=== PATIENT | male | born 1970 | race Two or more races ===

== ENCOUNTER 2016-12-03 18:00 | Emergency (ER) | payer SELFPAY ==
[~2016-12-03] VITALS: Ht 175.3 cm; Wt 82.6 kg
[2016-12-03 18:09] VITALS: BP 126/74
[2016-12-03] MEDS ORDERED: Mylanta II UD 30ml ORAL ONE (18:15)
[2016-12-03] MEDS ORDERED: Lidocaine 2% Visc 15ml soln ORAL ONE (18:15)
[2016-12-03] MEDS ORDERED: Dicyclomine HCl 10mg/5ml oral soln ORAL ONE (18:15)
[2016-12-03] MEDS ORDERED: PEPCID20 MG ORAL (18:22)
--- NOTE | 2016-12-03 18:35 | Emergency Room Report ---
History of Present Illness General Chief Complaint: Chest Pain Source: Patient Present Illness HPI Patient present with complaints of pain to the left upper chest area Sharp shooting pain that came on while he was at work Denies any shortness of breath it lasted few seconds and relieves patient reports some increased nausea with that Denies any vomiting or lightheadedness Denies any back or flank pain Denies any recent fevers or chills denies any cough pain was 3/10 Without much other radiation Allergies: Coded Allergies: No Known Allergies (Unverified , 10/17/16) Patient History Past Medical History: see triage record Pertinent Family History: none Reviewed Nursing Documentation: PMH: Agreed, PSxH: Agreed Nursing Documentation-PMH Past Medical History: No Stated History Review of Systems All Other Systems: negative except mentioned in HPI Physical Exam Vital Signs Date Time Temp Pulse Resp B/P Pulse Ox O2 Delivery O2 Flow Rate FiO2 12/03/16 18:04 97.5 76 17 124/76 98 Room Air Sp02 EP Interpretation: reviewed, normal General Appearance: well appearing, no apparent distress Head: normocephalic, atraumatic Eyes: bilateral eye EOMI, bilateral eye PERRL ENT: hearing grossly normal, normal pharynx, TMs + canals normal, uvula midline Neck: full range of motion, supple, no meningismus, no bony tend Respiratory: lungs clear, normal breath sounds, no rhonchi, no respiratory distress, no retraction, no accessory muscle use Cardiovascular #1: normal peripheral pulses, regular rate, rhythm, no edema, no gallop, no JVD, no murmur Gastrointestinal: normal bowel sounds, non tender, soft, no mass, no organomegaly, non-distended, no guarding, no hernia, no pulsatile mass, no rebound Genitourinary: no CVA tenderness Musculoskeletal: normal inspection Neurologic: oriented x3, responsive, fluorescent solution mixer III-XII nml as tested, motor strength/ tone normal, sensory intact Psychiatric: mood/affect normal Skin: normal color, no rash, warm/dry, palpation normal Lymphatic: normal inspection, no adenopathy Medical Decision Making Diagnostic Impression: Primary Impression: Chest pain ER Course Patient was seen fairly recently here in the ER by myself At that time extensive workup including blood work was initiated Today the patient had EKG obtained Remains hemodynamically stable I did not feel that repeat blood work was appropriate at this time given his recent workup Patient was provided with a GI cocktail which did improve some symptoms The patient stable for close outpatient followup EKG Diagnostic Results Rate: normal Rhythm: NSR ST Segments: no acute changes Rhythm Strip Diag. Results EP Interpretation: yes Rate: 77 Rhythm: NSR, no PVC's, no ectopy Last Vital Signs Date Time Temp Pulse Resp B/P Pulse Ox O2 Delivery O2 Flow Rate FiO2 12/03/16 18:10 65 12 Room Air 12/03/16 18:09 97.5 126/74 98 Status: improved Disposition: HOME, SELF-CARE Condition: Improved Scripts Famotidine (PEPCID) 20 Mg Tablet 20 MG ORAL BEDTIME, #14 TAB 0 Refills Prov: LALITA DERAS D.O. 12/03/16 Referrals: NOT CHOSEN IPA/,REFERRING (PCP) Patient Instructions: Nonspecific Chest Pain Additional Instructions: Patient is provided with the discharge instructions notified to follow up with primary doctor in the next 2-3 days otherwise return to the er with any worsening symptoms. LALITA DERAS D.O. Dec 03, 2016 18:35
[2016-12-03 18:36] VITALS: BP 126/74
--- NOTE | 2016-12-06 15:53 | Cardiology Report ---
APPROVED REPORT EKG Measurement Heart [id number] Normal sinus rhythm Normal ECG
== END 2016-12-03 18:37 | disposition home or self-care (01) ==
LOC: EMR 18:05
DX: R07.9 Chest pain, unspecified (principal)
CPT/HCPCS: 93005; 99283

== ENCOUNTER 2017-06-29 16:40 | Emergency (ER) | payer MEDICAID, OTHER ==
[~2017-06-29] VITALS: Ht 172.7 cm; Wt 86.2 kg
[~2017-06-29 16:40] MED LIST: PEPCID20 MG ORAL
[2017-06-29] MEDS ORDERED: LOSARTAN POTASS25 MG ORAL (16:55)
[2017-06-29 17:11] VITALS: BP 148/95
[2017-06-29] MEDS ORDERED: Tetracaine 0.5% Opth Soln LEFT EYE ONE (17:15)
[2017-06-29] MEDS ORDERED: DiphenhydrAMINE 50mg/ml Inj IVP ONE (17:15)
[2017-06-29] MEDS ORDERED: Ketorolac 30mg Inj IV ONE ×2 (17:15→18:15)
[2017-06-29] MEDS ORDERED: Tetracaine 0.5% Opth Soln RIGHT EYE ONE (17:15)
[2017-06-29 18:08] LABS: BASOPHILS % (AUTO) 1.1 % (0.0-2.0); LYMPHOCYTES % (AUTO) 21.1 % (20.0-45.0); MEAN CORPUSCULAR HEMOGLOBIN 31.1 PG (27.0-31.0); MEAN CORPUSCULAR HGB CONC 35.7 G/DL (32.0-36.0); MEAN CORPUSCULAR VOLUME 87 FL (80-99); MEAN PLATELET VOLUME 7.4 FL (6.5-10.1); MONOCYTES % (AUTO) 9.1 % (1.0-10.0); NEUTROPHILS % (AUTO) 66.7 % (45.0-75.0); PLATELET COUNT 199 K/UL (150-450); RED CELL DISTRIBUTION WIDTH 11.8 % (11.6-14.8); WHITE BLOOD COUNT 7.4 K/UL (4.8-10.8)
[2017-06-29 18:15] LABS: INR 0.9 (0.9-1.1); PROTHROMBIN TIME 9.9 SEC (9.30-11.50)
[2017-06-29 18:25] LABS: ALANINE AMINOTRANSFERASE 26 U/L (3-41); ALBUMIN/GLOBULIN RATIO 1.8 (1.0-2.7); ANION GAP 14 (5-15); ASPARTATE AMINO TRANSFERASE 20 U/L (5-40); CALCIUM 9.1 mg/dL (8.6-10.2); CARBON DIOXIDE 23 mEQ/L (20-30); CHLORIDE 102 mEQ/L (98-107); CREATININE 0.8 mg/dL (0.7-1.2); GLOMERULAR FILTRATION RATE > 60 mL/min (>60); HEMOLYSIS 19; POTASSIUM 3.8 mEQ/L (3.4-4.9); SODIUM 139 mEQ/L (135-145); TOTAL PROTEIN 7.1 g/dL (6.6-8.7)
[2017-06-29] MEDS ORDERED: IBUPROFEN600 MG ORAL (18:37)
[2017-06-29] MEDS ORDERED: REGLAN10 MG ORAL (18:37)
[2017-06-29 18:43] VITALS: BP_SYST 125; BP_SYST 148; BP_DIAS 78; BP_DIAS 95
--- NOTE | 2017-06-30 09:36 | Diagnostic Imaging Report ---
Indication: Headache Technique: Contiguous 5 mm thick transaxial imaging of the head obtained in a Siemens Sensation [address] scanner. Soft tissue and bone windows generated. Total Dose length Product (DLP): [address] Dose Index Volume (CTDIvol): 70.38 mGy Comparison: none Findings: The size and configuration of the cortical sulci, basal cisterns, and ventricles are within normal limits for age. There is no mass effect, midline shift, or edema identified. There is no evidence of acute hemorrhage or abnormal intra-axial or extra-axial fluid collections. There is right mastoid opacification. No associated fracture identified. The findings are presumably inflammatory in nature. Please correlate clinically. Impression: No mass effect, edema or acute bleed. Partial right mastoid air cell opacification --mastoiditis versus trauma. No acute fracture identified. Please correlate clinically. The CT scanner at [facility] is accredited by the [employer] and the scans are performed using dose optimization techniques as appropriate to a performed exam including Automatic Exposure control.
--- NOTE | 2017-06-30 12:38 | Emergency Room Report ---
History of Present Illness General Chief Complaint: Headache Source: Patient Present Illness HPI The patient is a 47 old male with a history of hypertension presenting for headache, eye pain, and blurred vision. He states that he awoke with the symptoms today. The blurred vision has resolved but headache is a 7/10 dull ache primarily to the back of the head. Radiates to the neck. No known provoking relieving factors. He denies history of migraines. He denies other symptoms including fever, chills, dizziness, chest pain, shortness of breath Allergies: Coded Allergies: No Known Allergies (Unverified , 10/17/16) Patient History Past Medical History: see triage record Pertinent Family History: none Reviewed Nursing Documentation: PMH: Agreed, PSxH: Agreed Nursing Documentation-PMH Past Medical History: No History, Except For Hx Hypertension: Yes Review of Systems All Other Systems: negative except mentioned in HPI Physical Exam Vital Signs Date Time Temp Pulse Resp B/P Pulse Ox O2 Delivery O2 Flow Rate FiO2 06/29/17 16:52 97.9 74 16 143/100 98 Room Air Sp02 EP Interpretation: reviewed, normal General Appearance: no apparent distress, alert, GCS 15, non-toxic Head: normocephalic, atraumatic Eyes: bilateral eye EOMI, bilateral eye PERRL, bilateral eye normal inspection ENT: hearing grossly normal, normal pharynx, no angioedema, normal voice Neck: full range of motion, no bony tend, supple/symm/no masses, tender lateral - bilat paraspinal tenderness to proximal neck. Full AROM. Soft and supple Respiratory: chest non-tender, lungs clear, normal breath sounds, speaking full sentences Cardiovascular #1: regular rate, rhythm, no edema Neurologic: alert, oriented x3, responsive, motor strength/tone normal, sensory intact, normal gait, speech normal Psychiatric: judgement/insight normal, memory normal, mood/affect normal, no suicidal/homicidal ideation Skin: normal color, no rash, warm/dry, well hydrated Medical Decision Making PA Attestation Dr. Henson is my supervising physician. Patient management was discussed with my supervising physician Diagnostic Impression: Primary Impression: Migraine Qualified Codes: G43.909 - Migraine, unspecified, not intractable, without status migrainosus ER Course The patient is a 47 old male presenting for headache, eye pain, and blurred vision DDx considered but not limited to: migraine BLACK, cluster BLACK, glaucoma, among others PE: Mild HTN. NAD Head is NC/AT PERRL. EOMI. No injection. No corneal haze. There is tenderness to palpation over the proximal cervical paraspinal muscles. Full active range of motion. Soft and supple Vision is 20/20. See nurses note. IOP is 19 OD and 20 OS Blood work unremarkable. CT head unremarkable The patient is given toradol, benadryl, and reglan and states he is feeling much better. All symptoms have improved. ER precautions are given and he would followup with primary doctor Laboratory Tests Test 06/29/17 17:55 White Blood Count 7.4 K/UL (4.8-10.8) Red Blood Count 5.20 M/UL (4.70-6.10) Hemoglobin 16.2 G/DL (14.2-18.0) Hematocrit 45.2 % (42.0-52.0) Mean Corpuscular Volume 87 FL (80-99) Mean Corpuscular Hemoglobin 31.1 PG (27.0-31.0) H Mean Corpuscular Hemoglobin Concent 35.7 G/DL (32.0-36.0) Red Cell Distribution Width 11.8 % (11.6-14.8) Platelet Count 199 K/UL (150-450) Mean Platelet Volume 7.4 FL (6.5-10.1) Neutrophils (%) (Auto) 66.7 % (45.0-75.0) Lymphocytes (%) (Auto) 21.1 % (20.0-45.0) Monocytes (%) (Auto) 9.1 % (1.0-10.0) Eosinophils (%) (Auto) 2.0 % (0.0-3.0) Basophils (%) (Auto) 1.1 % (0.0-2.0) Prothrombin Time 9.9 SEC (9.30-11.50) Prothrombin Time INR 0.9 (0.9-1.1) PTT 27 SEC (23-33) Sodium Level 139 mEQ/L (135-145) Potassium Level 3.8 mEQ/L (3.4-4.9) Chloride Level 102 mEQ/L (98-107) Carbon Dioxide Level 23 mEQ/L (20-30) Anion Gap 14 (5-15) Blood Urea Nitrogen 10 mg/dL (7-23) Creatinine 0.8 mg/dL (0.7-1.2) Estimate Glomerular Filtration Rate > 60 mL/min (>60) Glucose Level 101 mg/dL (74-106) Calcium Level 9.1 mg/dL (8.6-10.2) Total Bilirubin 0.9 mg/dL (0.0-1.2) Aspartate Amino Transferase (AST) 20 U/L (5-40) Alanine Aminotransferase (ALT) 26 U/L (3-41) Alkaline Phosphatase 75 U/L (40-129) Total Protein 7.1 g/dL (6.6-8.7) Albumin 4.6 g/dL (3.5-5.2) Globulin 2.5 g/dL Albumin/Globulin Ratio 1.8 (1.0-2.7) Lab Results Impression unremarkable CT/MRI/US Diagnostic Results CT/MRI/US Diagnostic Results : Imaging Test Ordered: CT head Impression unremarkable Last Vital Signs Date Time Temp Pulse Resp B/P Pulse Ox O2 Delivery O2 Flow Rate FiO2 06/29/17 18:43 97.9 66 19 125/78 100 Room Air Status: improved Disposition: HOME, SELF-CARE Condition: Improved Scripts Metoclopramide Hcl* (REGLAN*) 10 Mg Tablet 10 MG ORAL THREE TIMES A DAY, #15 TAB Prov: JOYCELYN RODAS 06/29/17 Ibuprofen* (MOTRIN*) 600 Mg Tablet 600 MG ORAL Q8H Y for For Pain, #30 TAB 0 Refills Prov: JOYCELYN RODAS 06/29/17 Patient Instructions: Migraine Headache Additional Instructions: I discussed my findings with the patient. All questions and concerns have been answered. Treatment and medication compliance have been addressed. I advised the patient that they need to follow up with PMD in 3-5 days. Return to ED if symptoms worsen, new symptoms arise, or if needed for any reason. Patient verbalized understanding of discharge instructions. JOYCELYN RODAS Jun 30, 2017 12:38
== END 2017-06-29 18:43 | disposition home or self-care (01) ==
LOC: EMR 18:10
DX: G43.909 Migraine, unspecified, not intractable, without status migrainosus (principal); I10 Essential (primary) hypertension
CPT/HCPCS: 36415; 70450; 80053; 85025; 85610; 85730; 96374; 96375; 99284; J1200; J1885; J2405

== ENCOUNTER 2017-09-08 14:22 | Emergency (ER) | payer OTHER ==
[~2017-09-08] VITALS: Ht 165.1 cm; Wt 86.2 kg
[~2017-09-08 14:22] MED LIST changes: +IBUPROFEN600 MG ORAL; +LOSARTAN POTASS25 MG ORAL; +REGLAN10 MG ORAL
[2017-09-08 14:36] VITALS: BP 142/80
[2017-09-08 15:19] LABS: BASOPHILS % (AUTO) 0.6 % (0.0-2.0); EOSINOPHILS % (AUTO) 0.6 % (0.0-3.0); LYMPHOCYTES % (AUTO) 13.1 % (20.0-45.0); MEAN CORPUSCULAR HEMOGLOBIN 30.1 PG (27.0-31.0); MEAN CORPUSCULAR HGB CONC 34.3 G/DL (32.0-36.0); MEAN CORPUSCULAR VOLUME 88 FL (80-99); MEAN PLATELET VOLUME 7.8 FL (6.5-10.1); MONOCYTES % (AUTO) 7.9 % (1.0-10.0); NEUTROPHILS % (AUTO) 77.7 % (45.0-75.0); PLATELET COUNT 213 K/UL (150-450); RED BLOOD COUNT 5.28 M/UL (4.70-6.10); RED CELL DISTRIBUTION WIDTH 11.6 % (11.6-14.8); WHITE BLOOD COUNT 6.8 K/UL (4.8-10.8)
[2017-09-08 15:53] LABS: ALANINE AMINOTRANSFERASE 27 U/L (12-78); ALBUMIN/GLOBULIN RATIO 1.2 (1.0-2.7); ANION GAP 12 mmol/L (5-15); ASPARTATE AMINO TRANSFERASE 22 U/L (15-37); CALCIUM 9.3 MG/DL (8.5-10.1); CARBON DIOXIDE 23 MMOL/L (21-32); CHLORIDE 108 MMOL/L (98-107); CREATININE 0.9 MG/DL (0.55-1.30); GLOMERULAR FILTRATION RATE > 60 mL/min (>60); POTASSIUM 3.8 MMOL/L (3.5-5.1); SODIUM 143 MMOL/L (136-145); TOTAL PROTEIN 7.4 G/DL (6.4-8.2)
[2017-09-08] MEDS ORDERED: IBUPROFEN600 MG ORAL (16:08)
[2017-09-08 16:15] VITALS: BP 139/85
--- NOTE | 2017-09-08 16:34 | Emergency Room Report ---
History of Present Illness General Chief Complaint: Chest Pain Source: Patient Present Illness HPI 47-year-old male presents to ED complaining of chest pain. States the pain started this morning, left-sided, sharp, 8/10, radiating through the shoulder. Patient states pain is worse with deep breaths and moving. Denies cough. Denies fevers or chills. Denies shortness of breath. No other aggravating relieving factors. Denies any other associated symptoms Allergies: Coded Allergies: No Known Allergies (Unverified , 10/17/16) Patient History Past Medical History: HTN Past Surgical History: none Pertinent Family History: none Social History: Denies: smoking, alcohol use, drug use Immunizations: UTD Reviewed Nursing Documentation: PMH: Agreed, PSxH: Agreed Nursing Documentation-PMH Hx Hypertension: Yes Review of Systems All Other Systems: negative except mentioned in HPI Physical Exam Vital Signs Date Time Temp Pulse Resp B/P (MAP) Pulse Ox O2 Delivery O2 Flow Rate FiO2 09/08/17 14:26 97.9 78 18 148/82 95 Room Air Sp02 EP Interpretation: reviewed, normal General Appearance: no apparent distress, alert, GCS 15, non-toxic Head: normocephalic, atraumatic Eyes: bilateral eye normal inspection, bilateral eye PERRL ENT: hearing grossly normal, normal pharynx, no angioedema, normal voice Neck: full range of motion, supple/symm/no masses Respiratory: chest non-tender, lungs clear, normal breath sounds, speaking full sentences Cardiovascular #1: regular rate, rhythm, no edema Cardiovascular #2: 2+ carotid (R), 2+ carotid (L), 2+ radial (R), 2+ radial (L) , 2+ dorsalis pedis (R), 2+ dorsalis pedis (L) Gastrointestinal: normal bowel sounds, non tender, soft, non-distended, no guarding, no rebound Rectal: deferred Genitourinary: normal inspection, no CVA tenderness Musculoskeletal: back normal, gait/station normal, normal range of motion, non- tender Neurologic: alert, oriented x3, responsive, motor strength/tone normal, sensory intact, speech normal Psychiatric: judgement/insight normal, memory normal, mood/affect normal, no suicidal/homicidal ideation Reflexes: 3+ bicep (R), 3+ bicep (L), 3+ tricep (R), 3+ tricep (L), 3+ knee (R) , 3+ knee (L) Skin: normal color, no rash, warm/dry, well hydrated Lymphatic: no adenopathy Medical Decision Making Diagnostic Impression: Primary Impression: Chest pain Qualified Codes: R07.9 - Chest pain, unspecified ER Course Hospital Course 47-year-old M presents ED complaining of chest pain Differential diagnoses include: Rib fracture, MO/unstable angina, contusion, muscle strain Clinical course Patient placed on stretcher. After initial history and physical I ordered labs , EKG, chest x-ray. labs reviewed- all electrolytes normal, troponins negative, no leukocytosis, hemoglobin/hematocrit stable Chest x-ray-no cardiomegaly, no rib fracture, no pneumothorax, no acute process per HEART score, patient is at low risk for acute event given lack of risk factors. Patient can be safely discharged to home pending outpatient followup. based on presentation, I believe the pain is muscular. patient agrees with plan I. I feel this is a highly complex case requiring extensive working including EKG/Rhythm strip, Xray/CT/US, Blood/urine lab work, repeat exams while in ED, and administration of strong opiates/narcotics for pain control, admission to hospital or close patient follow up. Diagnosis - chest pain Stable and discharged to home with Rx Motrin. Instructed to followup with PMD. Return to ED if symptoms recur or worsen Labs Test 09/08/17 15:05 White Blood Count 6.8 K/UL (4.8-10.8) Red Blood Count 5.28 M/UL (4.70-6.10) Hemoglobin 15.9 G/DL (14.2-18.0) Hematocrit 46.3 % (42.0-52.0) Mean Corpuscular Volume 88 FL (80-99) Mean Corpuscular Hemoglobin 30.1 PG (27.0-31.0) Mean Corpuscular Hemoglobin Concent 34.3 G/DL (32.0-36.0) Red Cell Distribution Width 11.6 % (11.6-14.8) Platelet Count 213 K/UL (150-450) Mean Platelet Volume 7.8 FL (6.5-10.1) Neutrophils (%) (Auto) 77.7 % (45.0-75.0) Lymphocytes (%) (Auto) 13.1 % (20.0-45.0) Monocytes (%) (Auto) 7.9 % (1.0-10.0) Eosinophils (%) (Auto) 0.6 % (0.0-3.0) Basophils (%) (Auto) 0.6 % (0.0-2.0) Sodium Level 143 MMOL/L (136-145) Potassium Level 3.8 MMOL/L (3.5-5.1) Chloride Level 108 MMOL/L (98-107) Carbon Dioxide Level 23 MMOL/L (21-32) Anion Gap 12 mmol/L (5-15) Blood Urea Nitrogen 12 mg/dL (7-18) Creatinine 0.9 MG/DL (0.55-1.30) Estimat Glomerular Filtration Rate > 60 mL/min (>60) Glucose Level 100 MG/DL (74-106) Calcium Level 9.3 MG/DL (8.5-10.1) Total Bilirubin 0.7 MG/DL (0.2-1.0) Aspartate Amino Transf (AST/SGOT) 22 U/L (15-37) Alanine Aminotransferase (ALT/SGPT) 27 U/L (12-78) Alkaline Phosphatase 78 U/L (46-116) Total Creatine Kinase 175 U/L (26-308) Creatine Kinase MB 2.0 NG/ML (0.0-3.6) Creatine Kinase MB Relative Index 1.1 Troponin I 0.000 ng/mL (0.000-0.056) Pro-B-Type Natriuretic Peptide 11 pg/mL (0-125) Total Protein 7.4 G/DL (6.4-8.2) Albumin 4.1 G/DL (3.4-5.0) Globulin 3.3 g/dL Albumin/Globulin Ratio 1.2 (1.0-2.7) EKG Diagnostic Results Rate: normal Rhythm: NSR ST Segments: no acute changes ASA given to the pt in ED: No Rhythm Strip Diag. Results EP Interpretation: yes Rhythm: NSR, no PVC's, no ectopy Chest X-Ray Diagnostic Results Chest X-Ray Diagnostic Results : Chest X-Ray Ordered: Yes # of Views/Limited/Complete: 1 View Indication: Chest Pain EP Interpretation: Yes Interpretation: no consolidation, no effusion, no pneumothorax, no acute cardiopulmonary disease Impression: No acute disease Electronically Signed by: Electronically signed by Sander Henson MD Last Vital Signs Date Time Temp Pulse Resp B/P (MAP) Pulse Ox O2 Delivery O2 Flow Rate FiO2 09/08/17 16:15 97.9 77 17 139/85 94 Room Air Status: improved Disposition: HOME, SELF-CARE Condition: Stable Scripts Ibuprofen* (MOTRIN*) 600 Mg Tablet 600 MG ORAL Q8H Y for For Pain, #30 TAB 0 Refills Prov: SANDER HENSON M.D. 09/08/17 Departure Forms: Return to Work Return to Work Date: Sep 09, 2017 Work Restrictions: No Heavy Lifting Patient Instructions: Nonspecific Chest Pain SANDER HENSON M.D. Sep 08, 2017 16:34
--- NOTE | 2017-09-08 18:03 | Diagnostic Imaging Report ---
Indication: Chest pain Technique: One view of the chest Comparison: 10/17/2016 Findings: Lungs and pleural spaces are clear. Heart size is normal. No significant interim change Impression: No acute process
--- NOTE | 2017-09-10 17:34 | Cardiology Report ---
APPROVED REPORT EKG Measurement Heart [id number] Normal sinus rhythm Normal ECG
== END 2017-09-08 16:15 | disposition home or self-care (01) ==
LOC: EMR 15:10
DX: R07.9 Chest pain, unspecified (principal); I10 Essential (primary) hypertension
CPT/HCPCS: 36415; 71010; 80053; 82550; 82553; 83880; 84484; 85025; 93005; 96361; 96374; 99284

== ENCOUNTER 2018-02-02 10:51 | Emergency (ER) | payer MEDICAID, OTHER ==
[~2018-02-02] VITALS: Ht 172.7 cm; Wt 89.8 kg
[2018-02-02] MEDS ORDERED: Metoclopramide 10mg/10ml Liq ORAL ONE (11:15)
[2018-02-02] MEDS ORDERED: Ketorolac 60mg Inj IM ONE (11:15)
--- NOTE | 2018-02-02 11:33 | Emergency Room Report ---
History of Present Illness General Chief Complaint: Pain Source: Patient Present Illness HPI 47-year-old male presents with headache this morning, bitemporal, feels like usual migraine. Did not take any pain medication at home. Has neurology appointment coming up. denies neck pain, stiffness, nausea or vomiting or fevers chills. Patient also states he noted some bleeding to top of right scrotum after shower but he doesn't remember scratching area, do not shave area and denies any trauma to area. He states with pressure bleeding stopped. Allergies: Coded Allergies: No Known Allergies (Unverified , 10/17/16) Patient History Past Medical History: migraines Past Surgical History: none Pertinent Family History: none Immunizations: UTD Reviewed Nursing Documentation: PMH: Agreed, PSxH: Agreed Nursing Documentation-PMH Past Medical History: No History, Except For Hx Hypertension: Yes Review of Systems All Other Systems: negative except mentioned in HPI Physical Exam Vital Signs Date Time Temp Pulse Resp B/P (MAP) Pulse Ox O2 Delivery O2 Flow Rate FiO2 02/02/18 10:55 97.6 71 18 138/85 96 Room Air 97.5 Sp02 EP Interpretation: reviewed, normal General Appearance: normal inspection, well appearing, no apparent distress, alert, GCS 15, non-toxic Head: normocephalic, atraumatic Eyes: bilateral eye PERRL, bilateral eye EOMI ENT: normal ENT inspection, hearing grossly normal, normal pharynx, no angioedema, normal voice, TMs + canals normal, uvula midline, moist mucus membranes Neck: normal inspection, full range of motion, supple, thyroid normal, no meningismus, no bony tend Respiratory: normal inspection, lungs clear, normal breath sounds, no rhonchi, no respiratory distress, no retraction, no accessory muscle use, no wheezing, speaking full sentences Cardiovascular #1: regular rate, rhythm, no edema, no JVD, normal capillary refill Gastrointestinal: normal inspection, normal bowel sounds, non tender, soft, no mass, no peritonitis, non-distended, no guarding, no hernia, no pulsatile mass Genitourinary: no CVA tenderness, other - Top right of scrotum: dried blood noted. Area wiped with alcohol and small ooze/bleeding observed. Stopped with pressure. Musculoskeletal: normal inspection, back normal, normal range of motion, no calf tenderness, pelvis stable, Santo's Sign negative Neurologic: normal inspection, alert, oriented x3, responsive, thread spooler III-XII nml as tested, motor strength/tone normal, cerebellar normal, normal gait, speech normal Psychiatric: normal inspection, judgement/insight normal, mood/affect normal, no suicidal/homicidal ideation, no delusions Skin: normal inspection, normal color, no rash Lymphatic: normal inspection, no adenopathy Medical Decision Making Diagnostic Impression: Primary Impression: Headache Qualified Codes: G44.209 - Tension-type headache, unspecified, not intractable Additional Impression: Scrotal bleeding ER Course Patient was headache for 1 day likely usual migraine. No focal neurological deficits. Low suspicion for SAH or meningitis given well appearance, no focal neurological deficits, no meningismus, and known migraine history.. In symptoms improved with IM Toradol and by mouth Reglan. Patient kash has follow-up with neurology scheduled. Will prescribe medication he can take at home for migraine flare. Bleeding to top of scrotums stopped with pressure no associated infection, mass to area ER course: Patient has remained stable during ED stay. Disposition: Patient is to be discharged to home. Prescriptions given are reglan/tylenol Patient is instructed to follow up with their primary care doctor within 5 days. Patient is instructed to follow up with neurologist at scheduled appointment Strict return precautions discussed with patient such as fever, chills, worsening/severe pain, nausea, vomiting, which may indicate severe illness. Patient verbalizes understanding and agrees with plan. Please note that this Emergency Department Report was dictated using [employer] worker technology software, occasionally this can lead to erroneous entry secondary to interpretation by the dictation equipment Last Vital Signs Date Time Temp Pulse Resp B/P (MAP) Pulse Ox O2 Delivery O2 Flow Rate FiO2 02/02/18 10:55 97.6 71 18 138/85 96 Room Air 97.5 Status: improved Disposition: HOME, SELF-CARE Referrals: NOT CHOSEN IPA/,REFERRING (PCP) ZAHRAA STEVENSON M.D. Feb 02, 2018 11:33
[2018-02-02] MEDS ORDERED: TYLENOL325 MG ORAL (11:34)
[2018-02-02] MEDS ORDERED: REGLAN10 M1 ORAL (11:34)
[2018-02-02 11:57] VITALS: BP 123/85
[2018-02-02 12:00] VITALS: BP 123/85
== END 2018-02-02 12:02 | disposition home or self-care (01) ==
LOC: EMR 11:07
DX: R51 Headache (principal); N50.89 Other specified disorders of the male genital organs; I10 Essential (primary) hypertension
CPT/HCPCS: 96372; 99283

== ENCOUNTER 2018-02-26 23:19 | Emergency (ER) | payer MEDICAID ==
[~2018-02-26] VITALS: Ht 172.7 cm; Wt 90.7 kg
[~2018-02-26 23:19] MED LIST changes: +REGLAN10 M1 ORAL; +TYLENOL325 MG ORAL
[2018-02-27 00:06] VITALS: BP 124/80
--- NOTE | 2018-02-27 00:13 | Emergency Room Report ---
History of Present Illness General Chief Complaint: Palpitations Source: Patient Present Illness [facility] This is a 48-year-old male with no past medical history. He presents with chief complaint of palpitation. Afterward he was sitting at home when he felt his heart beating really fast. He said he was pounding any felt dizzy. No syncope. This lasted about 5 minutes. Now symptom resolved. Denies any chest pain. Does have some headache. No nausea no vomiting. No fever or chills. No recent alcohol or drug use. Allergies: Coded Allergies: No Known Allergies (Unverified , 10/17/16) Patient History Past Medical History: see triage record, old chart reviewed Past Surgical History: none Pertinent Family History: none Social History: Denies: smoking Immunizations: other Reviewed Nursing Documentation: PMH: Agreed; PSxH: Agreed Nursing Documentation-PMH Past Medical History: No History, Except For Hx Hypertension: Yes Review of Systems Eye: Denies: eye pain, blurred vision ENT: Denies: ear pain, nose congestion, throat swelling Respiratory: Denies: cough, shortness of breath Cardiovascular: Reports: palpitations; Denies: chest pain Gastrointestinal: Denies: abdominal pain, diarrhea, nausea, vomiting Musculoskeletal: Denies: back pain, joint pain Skin: Denies: rash Neurological: Denies: headache, numbness Endocrine: Denies: increased thirst, increased urine Hematologic/Lymphatic: Denies: easy bruising All Other Systems: negative except mentioned in HPI Physical Exam Vital Signs Date Time Temp Pulse Resp B/P (MAP) Pulse Ox O2 Delivery O2 Flow Rate FiO2 02/26/18 23:36 98.2 67 18 129/83 97 Room Air 98.2 vitals normal Sp02 EP Interpretation: reviewed, normal General Appearance: well appearing, no apparent distress, alert Head: normocephalic, atraumatic Eyes: bilateral eye PERRL, bilateral eye EOMI ENT: hearing grossly normal, normal pharynx Neck: full range of motion, supple, no meningismus Respiratory: chest non-tender, lungs clear, normal breath sounds Cardiovascular #1: regular rate, rhythm, no murmur Gastrointestinal: normal bowel sounds, non tender, no mass, no organomegaly, no bruit, non-distended Musculoskeletal: back normal, gait/station normal, normal range of motion Psychiatric: mood/affect normal Skin: warm/dry Medical Decision Making Diagnostic Impression: Primary Impression: Palpitations ER Course Patient with palpitation. This may be an SVT or PVCs. Or other arrhythmia. He is asymptomatic right now. We'll discharge home. He will benefit from a Holter monitor. EKG Diagnostic Results Rate: normal Rhythm: NSR ST Segments: no acute changes Rhythm Strip Diag. Results Rhythm Strip Time: 00:12 EP Interpretation: yes Rate: 72 Rhythm: NSR, no PVC's, no ectopy Last Vital Signs Date Time Temp Pulse Resp B/P (MAP) Pulse Ox O2 Delivery O2 Flow Rate FiO2 02/27/18 00:06 98.2 20 124/80 97 Room Air 98.2 02/26/18 23:36 67 Status: improved Disposition: HOME, SELF-CARE Condition: Stable Referrals: NON PHYSICIAN (PCP) Patient Instructions: Palpitations Additional Instructions: Follow-up with your doctor within a week. Avoid alcohol or caffeine. You will need a referral to see a creative services specialist for Holter monitor. Return if worse. CARINA GALICIA M.D. Feb 27, 2018 00:13
[2018-02-27 00:17] VITALS: BP 118/76
== END 2018-02-27 00:17 | disposition home or self-care (01) ==
LOC: EMR 23:45
DX: R00.2 Palpitations (principal); I10 Essential (primary) hypertension
CPT/HCPCS: 99283

== ENCOUNTER 2018-07-22 18:05 | Emergency (ER) | payer MEDICAID ==
[~2018-07-22] VITALS: Ht 165.1 cm; Wt 89.8 kg
[2018-07-22 18:14] VITALS: BP 130/72
[2018-07-22] MEDS ORDERED: NAPROXEN500 M2 ORAL (18:51)
[2018-07-22 18:58] VITALS: BP 130/72
--- NOTE | 2018-07-22 19:31 | Emergency Room Report ---
History of Present Illness General Chief Complaint: Pain Source: Patient Present Illness HPI Patient is a 48-year-old male presenting for right toe pain. This began 3 days prior and has been worsening. He admits to a history of gout and states he has been eating beef very often over the past month. Pain is a 10 out of 10 dull ache and does not radiate from the right big toe. It is worse with touch. He denies any known injury to the area. He took motrin which did help. He denies any other symptoms including fever, calf pain, numbness Allergies: Coded Allergies: No Known Allergies (Unverified , 10/17/16) Patient History Past Medical History: see triage record Pertinent Family History: none Reviewed Nursing Documentation: PMH: Agreed; PSxH: Agreed Nursing Documentation-PMH Past Medical History: No History, Except For Hx Hypertension: Yes Review of Systems All Other Systems: negative except mentioned in HPI Physical Exam Vital Signs Date Time Temp Pulse Resp B/P (MAP) Pulse Ox O2 Delivery O2 Flow Rate FiO2 07/22/18 18:09 97.6 78 18 130/72 96 Room Air 97.5 Sp02 EP Interpretation: reviewed, normal General Appearance: no apparent distress, alert, GCS 15, non-toxic Head: normocephalic, atraumatic Eyes: bilateral eye normal inspection, bilateral eye PERRL Musculoskeletal: back normal, gait/station normal, normal range of motion, tender - R 1st toe tender to light touch. Erythema. Swollen Neurologic: alert, oriented x3, responsive, motor strength/tone normal, sensory intact, speech normal Psychiatric: judgement/insight normal, memory normal, mood/affect normal, no suicidal/homicidal ideation Skin: warm/dry, well hydrated Medical Decision Making PA Attestation Dr. Henson is my supervising physician. Patient management was discussed with my supervising physician Diagnostic Impression: Primary Impression: Gout Qualified Codes: M10.9 - Gout, unspecified ER Course Patient is a 48-year-old male presenting for right toe pain Differential diagnoses considered but not limited to: Gout, fracture,sprain, cellulitis PE: Afebrile. NAD R 1st toe has erythema, edema, tender with soft touch. Limited AROM. Pt is given 0.6 of colchicine and will be DC'ed home with naproxen. He is given information regarding diet for gout. ER precautions given Last Vital Signs Date Time Temp Pulse Resp B/P (MAP) Pulse Ox O2 Delivery O2 Flow Rate FiO2 07/22/18 18:58 97.5 77 18 130/72 96 Room Air 97.5 Status: improved Disposition: HOME, SELF-CARE Condition: Improved Scripts Naproxen* (NAPROXEN*) 500 Mg Tablet 500 MG ORAL TWICE A WEEK, #60 TAB 0 Refills Prov: JOYCELYN RODAS 07/22/18 Patient Instructions: Low-Purine Diet, Gout Additional Instructions: I discussed my findings with the patient. All questions and concerns have been answered. Treatment and medication compliance have been addressed. I advised the patient that they need to follow up with PMD in 3-5 days. Return to ED if symptoms worsen, new symptoms arise, or if needed for any reason. Patient verbalized understanding of discharge instructions. JOYCELYN RODAS Jul 22, 2018 19:31
== END 2018-07-22 19:00 | disposition home or self-care (01) ==
LOC: EMR 18:39
DX: M10.9 Gout, unspecified (principal)
CPT/HCPCS: 99283

== ENCOUNTER 2018-08-16 04:16 | Emergency (ER) | payer MEDICAID ==
[~2018-08-16] VITALS: Ht 172.7 cm; Wt 89.8 kg
[~2018-08-16 04:16] MED LIST changes: +NAPROXEN500 M2 ORAL
[2018-08-16 04:31] VITALS: BP 141/82
[2018-08-16] MEDS ORDERED: ALLOPURINOL100 M1 ORAL (04:33)
--- NOTE | 2018-08-16 04:36 | Emergency Room Report ---
History of Present Illness General Chief Complaint: Abdominal Pain Source: Patient Present Illness HPI Patient presents report of initially chest pain On discussion he also complains of his right ear pain Patient reports pain to the left chest area midclavicular on the left side, fairly specific location patient palpates just above the areola area Reports of the pain had come on yesterday It is not currently present Denies any change with position or exertion Patient also complains of pain to the right ear Reports that he has a tube in the right ear and has noticed some discharge as well Denies any shortness of breath denies any pleurisy Allergies: Coded Allergies: No Known Allergies (Unverified , 10/17/16) Patient History Past Medical History: see triage record Pertinent Family History: none Reviewed Nursing Documentation: PMH: Agreed; PSxH: Agreed Nursing Documentation-PMH Hx Hypertension: Yes Review of Systems All Other Systems: negative except mentioned in HPI Physical Exam Vital Signs Date Time Temp Pulse Resp B/P (MAP) Pulse Ox O2 Delivery O2 Flow Rate FiO2 08/16/18 04:27 97.9 63 16 141/82 100 Room Air 97.9 Sp02 EP Interpretation: reviewed, normal General Appearance: well appearing, no apparent distress Head: normocephalic, atraumatic Eyes: bilateral eye PERRL, bilateral eye EOMI ENT: hearing grossly normal, normal pharynx, TMs + canals normal, uvula midline Neck: full range of motion, supple, no meningismus, no bony tend Respiratory: lungs clear, normal breath sounds, no rhonchi, no respiratory distress, no retraction, no accessory muscle use Cardiovascular #1: normal peripheral pulses, regular rate, rhythm, no edema, no gallop, no JVD, no murmur Gastrointestinal: normal bowel sounds, non tender, soft, no mass, no organomegaly, non-distended, no guarding, no hernia, no pulsatile mass, no rebound Genitourinary: no CVA tenderness Musculoskeletal: normal inspection Neurologic: oriented x3, responsive, shooter's helper III-XII nml as tested, motor strength/ tone normal, sensory intact Psychiatric: mood/affect normal Skin: normal color, no rash, warm/dry, palpation normal Lymphatic: normal inspection, no adenopathy Medical Decision Making Diagnostic Impression: Primary Impression: Chest pain Additional Impression: Otitis externa ER Course Patient is a fairly complex patient with multiple differential to consideration including but not limited to cardiac cardiopulmonary and vascular emergencies Patient did have baseline blood work obtained all within normal limits patient' s EKG is normal At this time patient placed on antibiotics for his otitis externa And requires close outpatient follow-up Labs Test 08/16/18 04:40 White Blood Count 6.5 K/UL (4.8-10.8) Red Blood Count 5.50 M/UL (4.70-6.10) Hemoglobin 15.9 G/DL (14.2-18.0) Hematocrit 46.6 % (42.0-52.0) Mean Corpuscular Volume 85 FL (80-99) Mean Corpuscular Hemoglobin 29.0 PG (27.0-31.0) Mean Corpuscular Hemoglobin Concent 34.2 G/DL (32.0-36.0) Red Cell Distribution Width 11.3 % (11.6-14.8) Platelet Count 210 K/UL (150-450) Mean Platelet Volume 8.0 FL (6.5-10.1) Neutrophils (%) (Auto) 55.8 % (45.0-75.0) Lymphocytes (%) (Auto) 27.7 % (20.0-45.0) Monocytes (%) (Auto) 10.3 % (1.0-10.0) Eosinophils (%) (Auto) 5.0 % (0.0-3.0) Basophils (%) (Auto) 1.2 % (0.0-2.0) Sodium Level 138 MMOL/L (136-145) Potassium Level 3.7 MMOL/L (3.5-5.1) Chloride Level 104 MMOL/L (98-107) Carbon Dioxide Level 27 MMOL/L (21-32) Anion Gap 7 mmol/L (5-15) Blood Urea Nitrogen 18 mg/dL (7-18) Creatinine 0.8 MG/DL (0.55-1.30) Estimat Glomerular Filtration Rate > 60 mL/min (>60) Glucose Level 105 MG/DL (74-106) Calcium Level 9.8 MG/DL (8.5-10.1) Total Bilirubin 0.6 MG/DL (0.2-1.0) Aspartate Amino Transf (AST/SGOT) 21 U/L (15-37) Alanine Aminotransferase (ALT/SGPT) 45 U/L (12-78) Alkaline Phosphatase 88 U/L (46-116) Total Creatine Kinase 197 U/L (26-308) Creatine Kinase MB 3.0 NG/ML (0.0-3.6) Creatine Kinase MB Relative Index 1.5 Troponin I 0.004 ng/mL (0.000-0.056) Total Protein 7.4 G/DL (6.4-8.2) Albumin 4.1 G/DL (3.4-5.0) Globulin 3.3 g/dL Albumin/Globulin Ratio 1.2 (1.0-2.7) EKG Diagnostic Results Rate: normal Rhythm: NSR ST Segments: no acute changes Rhythm Strip Diag. Results EP Interpretation: yes Rate: 66 Rhythm: NSR, no PVC's, no ectopy Last Vital Signs Date Time Temp Pulse Resp B/P (MAP) Pulse Ox O2 Delivery O2 Flow Rate FiO2 08/16/18 04:31 97.9 56 16 141/82 100 Room Air 97.9 Status: improved Disposition: HOME, SELF-CARE Condition: Improved Scripts Neomycin/Polymyxin B Sulf/Hc* (CORTISPORIN EAR SOLUTION*) 10 Ml Solution 2 DROP OTIC FOUR TIMES A DAY for 5 Days, #1 EA Instill in affected ear as directed for 7 days Prov: Huang Jon DO 08/16/18 Referrals: [facility],REFERRING (PCP) Additional Instructions: Patient is provided with the discharge instructions notified to follow up with primary doctor in the next 2-3 days otherwise return to the er with any worsening symptoms. Please note that this report is being documented using [email or web address] technology. This can lead to erroneous entry secondary to incorrect interpretation by the dictating instrument. Huang Jon DO Aug 16, 2018 04:36
[2018-08-16 04:58] LABS: BASOPHILS % (AUTO) 1.2 % (0.0-2.0); HEMATOCRIT 46.6 % (42.0-52.0); HEMOGLOBIN 15.9 G/DL (14.2-18.0); LYMPHOCYTES % (AUTO) 27.7 % (20.0-45.0); MEAN CORPUSCULAR VOLUME 85 FL (80-99); MONOCYTES % (AUTO) 10.3 % (1.0-10.0); NEUTROPHILS % (AUTO) 55.8 % (45.0-75.0); PLATELET COUNT 210 K/UL (150-450); RED CELL DISTRIBUTION WIDTH 11.3 % (11.6-14.8); WHITE BLOOD COUNT 6.5 K/UL (4.8-10.8)
[2018-08-16 05:20] LABS: ALANINE AMINOTRANSFERASE 45 U/L (12-78); ALBUMIN 4.1 G/DL (3.4-5.0); ALBUMIN/GLOBULIN RATIO 1.2 (1.0-2.7); ALKALINE PHOSPHATASE 88 U/L (46-116); ANION GAP 7 mmol/L (5-15); ASPARTATE AMINO TRANSFERASE 21 U/L (15-37); BILIRUBIN,TOTAL 0.6 MG/DL (0.2-1.0); BLOOD UREA NITROGEN 18 mg/dL (7-18); CALCIUM 9.8 MG/DL (8.5-10.1); CARBON DIOXIDE 27 MMOL/L (21-32); CHLORIDE 104 MMOL/L (98-107); CREATINE KINASE 197 U/L (26-308); CREATININE 0.8 MG/DL (0.55-1.30); POTASSIUM 3.7 MMOL/L (3.5-5.1); SODIUM 138 MMOL/L (136-145)
[2018-08-16] MEDS ORDERED: CORTISPORIN EAR10 ML OTIC (06:01)
[2018-08-16 06:05] VITALS: BP 132/78
[2018-08-16 06:06] VITALS: BP 141/82
== END 2018-08-16 06:07 | disposition home or self-care (01) ==
LOC: EMR 04:26
DX: R07.9 Chest pain, unspecified (principal); H60.91 Unspecified otitis externa, right ear; I10 Essential (primary) hypertension
CPT/HCPCS: 36415; 80053; 82550; 82553; 84484; 85025; 93005; 99284

== ENCOUNTER 2018-10-31 22:06 | Emergency (ER) | payer MEDICAID ==
[~2018-10-31] VITALS: Ht 172.7 cm; Wt 88.5 kg
[~2018-10-31 22:06] MED LIST changes: +ALLOPURINOL100 M1 ORAL; +CORTISPORIN EAR10 ML OTIC
[2018-10-31] MEDS ORDERED: Ketorolac 30mg Inj IV ONE (22:30)
[2018-10-31 22:41] LABS: APPEARANCE,URINE CLEAR; BASOPHILS % (AUTO) 1.2 % (0.0-2.0); BILIRUBIN, URINE NEGATIVE (NEGATIVE); COLOR,URINE PALE YELLOW; EOSINOPHILS % (AUTO) 4.7 % (0.0-3.0); GLUCOSE, URINE (UA) NEGATIVE (NEGATIVE); HEMATOCRIT 47.6 % (42.0-52.0); HEMOGLOBIN 16.2 G/DL (14.2-18.0); KETONES,URINE NEGATIVE (NEGATIVE); LEUKOCYTE ESTERASE ,URINE 1+ (NEGATIVE); LYMPHOCYTES % (AUTO) 27.6 % (20.0-45.0); MEAN CORPUSCULAR VOLUME 84 FL (80-99); MONOCYTES % (AUTO) 9.6 % (1.0-10.0); NEUTROPHILS % (AUTO) 56.9 % (45.0-75.0); NITRITE,URINE NEGATIVE (NEGATIVE); PH,URINE 6 (4.5-8.0); PLATELET COUNT 223 K/UL (150-450); PROTEIN,URINE NEGATIVE (NEGATIVE); RED BLOOD COUNT 5.68 M/UL (4.70-6.10); RED CELL DISTRIBUTION WIDTH 11.1 % (11.6-14.8); UROBILINOGEN,URINE NORMAL MG/DL (0.0-1.0); WHITE BLOOD COUNT 7.4 K/UL (4.8-10.8)
[2018-10-31 22:50] LABS: ANION GAP 7 mmol/L (5-15); BLOOD UREA NITROGEN 12 mg/dL (7-18); CALCIUM 9.1 MG/DL (8.5-10.1); CARBON DIOXIDE 30 MMOL/L (21-32); CHLORIDE 104 MMOL/L (98-107); CREATININE 0.8 MG/DL (0.55-1.30); POTASSIUM 3.9 MMOL/L (3.5-5.1); SODIUM 141 MMOL/L (136-145)
[2018-10-31 22:54] LABS: ALANINE AMINOTRANSFERASE 47 U/L (12-78); ALBUMIN 4.3 G/DL (3.4-5.0); ALKALINE PHOSPHATASE 108 U/L (46-116); ASPARTATE AMINO TRANSFERASE 23 U/L (15-37); BILIRUBIN,TOTAL 0.4 MG/DL (0.2-1.0)
[2018-10-31 23:10] VITALS: BP 139/82
--- NOTE | 2018-10-31 23:18 | Emergency Room Report ---
History of Present Illness General Chief Complaint: Abdominal Pain Source: Patient Present Illness HPI Is a 48-year-old male with no past medical history. He presents with chief complaint of abdominal pain. Pain localized to the right upper quadrant. Radiating to the left side. Onset for last 3 days. Also ready to the back. Has nausea but no vomiting. No diarrhea. No fever or chills. Nothing made it better. Nothing made it worse. Pain is 7 out of 10. Allergies: Coded Allergies: No Known Allergies (Unverified , 10/17/16) Patient History Past Medical History: see triage record, old chart reviewed Past Surgical History: none Pertinent Family History: none Social History: Denies: smoking Immunizations: other Reviewed Nursing Documentation: PMH: Agreed; PSxH: Agreed Nursing Documentation-PMH Past Medical History: No History, Except For Hx Hypertension: Yes Review of Systems Eye: Denies: eye pain, blurred vision ENT: Denies: ear pain, nose congestion, throat swelling Respiratory: Denies: cough, shortness of breath Cardiovascular: Denies: chest pain, palpitations Gastrointestinal: Reports: abdominal pain, nausea; Denies: diarrhea, vomiting Musculoskeletal: Denies: back pain, joint pain Skin: Denies: rash Neurological: Denies: headache, numbness Endocrine: Denies: increased thirst, increased urine Hematologic/Lymphatic: Denies: easy bruising All Other Systems: negative except mentioned in HPI Physical Exam Vital Signs Date Time Temp Pulse Resp B/P (MAP) Pulse Ox O2 Delivery O2 Flow Rate FiO2 10/31/18 22:12 98.1 65 16 139/82 96 Room Air vitals normal Sp02 EP Interpretation: reviewed, normal General Appearance: well appearing, no apparent distress, alert Head: normocephalic, atraumatic Eyes: bilateral eye PERRL, bilateral eye EOMI ENT: hearing grossly normal, normal pharynx Neck: full range of motion, supple, no meningismus Respiratory: chest non-tender, lungs clear, normal breath sounds Cardiovascular #1: regular rate, rhythm, no murmur Gastrointestinal: normal bowel sounds, no mass, no organomegaly, no bruit, non- distended, tenderness - Right upper quadrant. No guarding Musculoskeletal: back normal, gait/station normal, normal range of motion Neurologic: alert, oriented x3 Psychiatric: mood/affect normal Skin: warm/dry Medical Decision Making Diagnostic Impression: Primary Impression: Abdominal pain Qualified Codes: R10.10 - Upper abdominal pain, unspecified ER Course patient presents with abdominal pain. No evidence of infection. No evidence of gallstone or acute abdomen. Patient is pain-free now. We'll discharge home. Last Vital Signs Date Time Temp Pulse Resp B/P (MAP) Pulse Ox O2 Delivery O2 Flow Rate FiO2 10/31/18 23:10 98.0 16 139/82 96 Room Air 10/31/18 23:06 65 Status: improved Disposition: HOME, SELF-CARE Condition: Stable Scripts Ibuprofen* (MOTRIN*) 600 Mg Tablet 600 MG ORAL THREE TIMES A DAY, #30 TAB 0 Refills Prov: Nino Trinh MD 11/01/18 Patient Instructions: Abdominal Pain, Adult Additional Instructions: Follow-up with your doctor in 7 days. Return if worse. Nion Trinh MD Oct 31, 2018 23:18
[2018-11-01] MEDS ORDERED: IBUPROFEN600 MG ORAL (00:27)
[2018-11-01 00:36] VITALS: BP 116/73
--- NOTE | 2018-11-01 09:51 | Diagnostic Imaging Report ---
Indication: Pain, vomiting, right and left upper abdominal pain since Monday, vomiting undigested food Technique: Spiral acquisitions obtained through the abdomen and pelvis. No oral contrast utilized, per emergency room physician request No IV contrast utilized, per emergency room physician request. Multiplanar reconstructions were generated. Total dose length product 1015.94 mGycm. CTDIvol(s) 17.93 mGy. Dose reduction achieved using automated exposure control Comparison: None Findings: There is colonic diverticulosis. No evidence of diverticulitis. The appendix is normal. Some small bowel feces is noted in the distal and terminal ileum as well as in a few left lower quadrant small bowel loops. A single loop of small bowel left midabdomen is minimally distended with gas, small bowel is nondilated otherwise. Distal esophagus, stomach, duodenum are unremarkable. There is a small fat-containing inguinal hernia on the left. There is a tiny fat-containing umbilical hernia Lack of IV contrast limits assessment of the solid organs. The liver, gallbladder, bile ducts, pancreas, spleen, adrenals are unremarkable. There is mild fullness to the renal collecting systems bilaterally. No hydroureter demonstrated. No renal or ureteral calculi demonstrated. No focal renal parenchymal abnormality. No retroperitoneal or mesenteric mass or adenopathy. No pelvic mass or adenopathy., The included lung bases demonstrate posterior dependent atelectatic changes. There is some scarring or atelectasis in the inferior lingula. The bones demonstrate minimal degenerative changes of the lumbosacral junction. Impression: Nonspecific mild prominence of a single left mid abdomen small bowel loop. No evidence of obstructive process, however. Some small bowel feces may indicate stasis of contents. These findings may be on the basis of mild enteritis. Correlate with clinical findings No acute process otherwise Colonic diverticulosis. No evidence of diverticulitis Slight fullness to the bilateral renal collecting systems, significance uncertain as no downstream obstructive process is evident Incidental findings as noted, including minimal degenerative spondylosis changes, basilar pulmonary atelectatic changes, small fat-containing left inguinal hernia, small fat-containing umbilical hernia This essentially agrees with the preliminary interpretation provided overnight by [facility] teleradiology service, with minor variation. The CT scanner at [facility] is accredited by the [employer] and the scans are performed using protocols designed to limit radiation exposure to as low as reasonably achievable to attain images of sufficient resolution adequate for diagnostic evaluation.
== END 2018-11-01 00:40 | disposition home or self-care (01) ==
LOC: EMR 22:49
DX: R10.11 Right upper quadrant pain (principal); R11.0 Nausea; I10 Essential (primary) hypertension
CPT/HCPCS: 36415; 74176; 80053; 81003; 83690; 85025; 96361; 96374; 96375; 99284; J1885; J2405

== ENCOUNTER 2019-03-10 20:38 | Emergency (ER) | payer MEDICAID ==
[~2019-03-10] VITALS: Ht 165.1 cm; Wt 90.7 kg
[2019-03-10] MEDS ORDERED: ASPIR 8181 MG ORAL (20:45)
--- NOTE | 2019-03-10 20:55 | NUR ---
ED Nurse Note: Patient walk in c/o dizziness for 2 days. Patient states he has chest tightness for 1 day. AO4. NAD
--- NOTE | 2019-03-10 21:00 | NUR ---
ED Nurse Note: IV ACCESS ESTABLISHED. BLOOD AND URINE COLLECTED; SENT DOWN TO LAB.
[2019-03-10 21:05] VITALS: BP 145/98
[2019-03-10] MEDS ORDERED: MECLIZINE HCL25 MG ORAL (21:15)
[2019-03-10] MEDS ORDERED: AUGMENTIN 875-1 EAC1 ORAL (21:15)
--- NOTE | 2019-03-10 21:16 | Emergency Room Report ---
History of Present Illness General Chief Complaint: Chest Pain Source: Patient Present Illness HPI This is a 49-year-old male with a history hypertension. He also has a history of otitis with effusion and had to place on his right ear 2 years ago. He presents with chief complaint of ear pain, drainage, dizziness and nausea and vomiting. Onset 3 days ago. Has low-grade fever subjectively. When he vomited he has some chest pain. Denies any cough or congestion. Worse with movement of his head. Denies any other complaint. Allergies: Coded Allergies: No Known Allergies (Unverified , 10/17/16) Patient History Past Medical History: see triage record, old chart reviewed, HTN Past Surgical History: none Pertinent Family History: none Social History: Denies: smoking Immunizations: other Reviewed Nursing Documentation: PMH: Agreed; PSxH: Agreed Nursing Documentation-PMH Past Medical History: No History, Except For Hx Hypertension: Yes Review of Systems Eye: Denies: eye pain, blurred vision ENT: Reports: ear pain, ear discharge; Denies: nose congestion, throat swelling Respiratory: Denies: cough, shortness of breath Cardiovascular: Denies: chest pain, palpitations Gastrointestinal: Denies: abdominal pain, diarrhea, nausea, vomiting Musculoskeletal: Denies: back pain, joint pain Skin: Denies: rash Neurological: Denies: headache, numbness Endocrine: Denies: increased thirst, increased urine Hematologic/Lymphatic: Denies: easy bruising All Other Systems: negative except mentioned in HPI Physical Exam Vital Signs Date Time Temp Pulse Resp B/P (MAP) Pulse Ox O2 Delivery O2 Flow Rate FiO2 03/10/19 20:43 97.5 72 16 145/98 95 Room Air vitals normal Sp02 EP Interpretation: reviewed, normal General Appearance: well appearing, no apparent distress, alert Head: normocephalic, atraumatic Eyes: bilateral eye PERRL, bilateral eye EOMI ENT: hearing grossly normal, normal pharynx, other - Bilateral TM dull with effusion Neck: full range of motion, supple, no meningismus Respiratory: chest non-tender, lungs clear, normal breath sounds Cardiovascular #1: regular rate, rhythm, no murmur Gastrointestinal: normal bowel sounds, non tender, no mass, no organomegaly, no bruit, non-distended Musculoskeletal: back normal, gait/station normal, normal range of motion Psychiatric: mood/affect normal Skin: warm/dry Medical Decision Making Diagnostic Impression: Primary Impression: Otitis media Qualified Codes: H66.90 - Otitis media, unspecified, unspecified ear Additional Impression: Vertigo ER Course Patient presents with otitis media. This is causing his vertigo and vomiting. His chest pain is atypical in nature. No evidence of ACS, PE, dissection to name a few. We'll discharge home. EKG Diagnostic Results Rate: normal Rhythm: NSR ST Segments: no acute changes Rhythm Strip Diag. Results EP Interpretation: yes Rate: 64 Rhythm: NSR, no PVC's, no ectopy Last Vital Signs Date Time Temp Pulse Resp B/P (MAP) Pulse Ox O2 Delivery O2 Flow Rate FiO2 03/10/19 21:05 97.5 72 16 145/98 95 Room Air Status: improved Disposition: HOME, SELF-CARE Condition: Stable Scripts Meclizine Hcl* (MECLIZINE*) 25 Mg Tablet 25 MG ORAL THREE TIMES A DAY, #30 TAB Prov: Nino Trinh MD 03/10/19 Amoxicillin/Potassium Clav 875-125* (AUGMENTIN 875-125 TABLET*) 1 Each Tablet 1 TAB ORAL TWICE A DAY, #14 TAB Prov: Nino Trinh MD 03/10/19 Additional Instructions: Follow-up with your doctor in 7 days. Return if symptom worsen. Nino Trinh MD Mar 10, 2019 21:16
[2019-03-10 21:20] VITALS: BP 145/98
--- NOTE | 2019-03-10 21:20 | NUR ---
ER DISCHARGE NOTE: Patient is cleared to be discharged per ERMD, pt is aox4, on room air, with stable vital signs. pt was given dc and prescription instructions, pt was able to verbalize understanding, pt id band and iv site removed without complications. pt is able to ambulate with steady gait. pt took all belongings.
--- NOTE | 2019-03-11 12:25 | Cardiology Report ---
APPROVED REPORT EKG Measurement Heart [id number] Normal sinus rhythm with sinus arrhythmia Normal ECG
== END 2019-03-10 21:25 | disposition home or self-care (01) ==
LOC: EMR 21:25
DX: H66.93 Otitis media, unspecified, bilateral (principal); R42 Dizziness and giddiness; I10 Essential (primary) hypertension; R11.2 Nausea with vomiting, unspecified
CPT/HCPCS: 93005; 99283

== ENCOUNTER 2019-09-11 21:08 | Emergency (ER) | payer MEDICAID ==
[~2019-09-11] VITALS: Ht 172.7 cm; Wt 94.3 kg
[~2019-09-11 21:08] MED LIST changes: +ASPIR 8181 MG ORAL; +AUGMENTIN 875-1 EAC1 ORAL; +MECLIZINE HCL25 MG ORAL
--- NOTE | 2019-09-11 21:17 | NUR ---
ED Nurse Note: pt walked into ED C/O nausea and diarrhea. no Vomitting for the last 2 days. pt also verbalied abdominal pain. pt is alert x4. VSS
[2019-09-11 21:18] VITALS: BP 146/88
[2019-09-11] MEDS ORDERED: ZOFRAN4 MG ORAL (21:24)
[2019-09-11] MEDS ORDERED: ZITHROMAX250 MG ORAL (21:24)
--- NOTE | 2019-09-11 21:24 | Emergency Room Report ---
History of Present Illness General Chief Complaint: Abdominal Pain Source: Patient Present Illness [facility] This a 49-year-old male with no significant past medical history. He presents with chief of abdominal pain diarrhea. Onset yesterday. He went to [facility] over the weekend and came back the next day. He did eat and drink there. Symptoms started couple days afterward. But no vomiting. Abdominal pain is crampy in nature and diffuse. He ate something he has diarrhea. No relief with Pepto-Bismol. No fever chills. No trauma. Pain is 7 out of 10. Allergies: Coded Allergies: No Known Allergies (Unverified , 10/17/16) Patient History Past Medical History: see triage record, old chart reviewed Past Surgical History: none Pertinent Family History: none Social History: Denies: smoking Immunizations: other Reviewed Nursing Documentation: PMH: Agreed; PSxH: Agreed Nursing Documentation-PMH Hx Hypertension: Yes Review of Systems Eye: Denies: eye pain, blurred vision ENT: Denies: ear pain, nose congestion, throat swelling Respiratory: Denies: cough, shortness of breath Cardiovascular: Denies: chest pain, palpitations Gastrointestinal: Reports: abdominal pain, diarrhea, nausea; Denies: vomiting Musculoskeletal: Denies: back pain, joint pain Skin: Denies: rash Neurological: Denies: headache, numbness Endocrine: Denies: increased thirst, increased urine Hematologic/Lymphatic: Denies: easy bruising All Other Systems: negative except mentioned in HPI Physical Exam Vital Signs Date Time Temp Pulse Resp B/P (MAP) Pulse Ox O2 Delivery O2 Flow Rate FiO2 09/11/19 21:13 98.1 63 18 147/92 (110) 96 Room Air Vitals with high blood pressure Sp02 EP Interpretation: reviewed, normal General Appearance: well appearing, no apparent distress, alert Head: normocephalic, atraumatic Eyes: bilateral eye PERRL, bilateral eye EOMI ENT: hearing grossly normal, normal pharynx Neck: full range of motion, supple, no meningismus Respiratory: chest non-tender, lungs clear, normal breath sounds Cardiovascular #1: regular rate, rhythm, no murmur Gastrointestinal: non tender, no mass, no organomegaly, no bruit, non-distended , abnormal bowel sounds - [place] bowel sounds Musculoskeletal: back normal, gait/station normal, normal range of motion Psychiatric: mood/affect normal Medical Decision Making Diagnostic Impression: Primary Impression: Diarrhea Qualified Codes: R19.7 - Diarrhea, unspecified ER Course Patient presents with diarrhea been going to [place]. Most likely traveler's diarrhea. No evidence of a acute abdomen. No evidence of any obstruction. Abdominal exam is benign. Will discharge home with reassurance. Last Vital Signs Date Time Temp Pulse Resp B/P (MAP) Pulse Ox O2 Delivery O2 Flow Rate FiO2 09/11/19 21:13 98.1 63 18 147/92 (110) 96 Room Air Status: unchanged Disposition: HOME, SELF-CARE Condition: Stable Scripts Azithromycin* (ZITHROMAX*) 250 Mg Tablet 250 MG ORAL DAILY, #6 TAB 0 Refills Take two tables once daily for 1 day, then one tablet once daily for 4 days. Prov: Nino Trinh MD 09/11/19 Ondansetron (Zofran) 4 Mg Tablet 4 MG ORAL Q6H PRN for Nausea & Vomiting, #10 TAB 0 Refills Prov: Nino Trinh MD 09/11/19 Additional Instructions: Increase fluids. Continue with Pepto-Bismol. Do not take anything to stop diarrhea. Follow-up with your doctor in 7 days for recheck. Return if worse. Nino Trinh MD Sep 11, 2019 21:24
[2019-09-11 21:28] VITALS: BP 148/87
--- NOTE | 2019-09-11 21:28 | NUR ---
ER DISCHARGE NOTE: Patient is cleared to be discharged per ERMD, pt is aox4, on room air, with stable vital signs. pt was given dc instructions, pt was able to verbalize understanding, pt id band removed without complications. pt is able to ambulate with steady gait. pt took all belongings.
== END 2019-09-11 21:28 | disposition home or self-care (01) ==
LOC: EMR 21:20
DX: R19.7 Diarrhea, unspecified (principal); I10 Essential (primary) hypertension
CPT/HCPCS: 99282

== ENCOUNTER 2020-02-18 23:01 | Emergency (ER) | payer SELFPAY ==
[~2020-02-18] VITALS: Ht 172.7 cm; Wt 90.7 kg
[~2020-02-18 23:01] MED LIST changes: +ZITHROMAX250 MG ORAL; +ZOFRAN4 MG ORAL
[2020-02-18] MEDS ORDERED: OMEPRAZOLE40 M1 ORAL (23:11)
--- NOTE | 2020-02-18 23:14 | NUR ---
ED Nurse Note: AMBULATED TO ED C/O CHEST PAIN AND SHORTNESS OF BREATH UPON INSPIRATION X1 DAY. AFEBRILE; DENIES COUGH; DENIES TRAVEL OR EXPOSURE TO PERSONS WHO RECENTLY TRAVELED. AO4 NAD. VSS. AMBULATES WITH STEADY GAIT. CHANGE INTO GOWN; ATTACHED TO MONITOR; SAFETY MEASURES MET.
--- NOTE | 2020-02-18 23:25 | NUR ---
ED Nurse Note: IV ACCESS ESTABLISHED. BLOOD COLLECTED; SENT DOWN TO LAB. EKG DONE AT BEDSIDE; NSR.
[2020-02-18 23:34] VITALS: BP 144/95
--- NOTE | 2020-02-18 23:42 | Emergency Room Report ---
History of Present Illness General Chief Complaint: Asthma Source: Patient Present Illness HPI 50-year-old male presents ED for evaluation. States that for the last few weeks he has been having chest pain and feeling short of breath. No cough. No runny nose or congestion. Pain is midsternal, dull, 7 out of 10, nonradiating. States he went to his PMD a few weeks ago and he prescribed him an inhaler. States he inhaler is not helping. Denies sick contacts or recent travel. Denies fevers or chills. No other aggravating relieving factors. Denies any other associated symptoms Allergies: Coded Allergies: No Known Allergies (Unverified , 10/17/16) COVID-19 Screening Contact w/high risk pt: No Recent Travel to affected area: No Experienced COVID-19 symptoms?: No COVID-19 symptoms experienced: Shortness of Breath Patient History Past Medical History: HTN Past Surgical History: none Pertinent Family History: none Social History: Denies: smoking, alcohol use, drug use Immunizations: UTD Reviewed Nursing Documentation: PMH: Agreed; PSxH: Agreed Nursing Documentation-PMH Past Medical History: No History, Except For Hx Cardiac Problems: No - takes aspirin GERD Hx Hypertension: Yes Review of Systems All Other Systems: negative except mentioned in HPI Physical Exam Vital Signs Date Time Temp Pulse Resp B/P (MAP) Pulse Ox O2 Delivery O2 Flow Rate FiO2 02/18/20 23:03 98.2 80 18 164/97 (119) 95 Room Air Sp02 EP Interpretation: reviewed, normal General Appearance: no apparent distress, alert, GCS 15, non-toxic Head: normocephalic, atraumatic Eyes: bilateral eye normal inspection, bilateral eye PERRL ENT: hearing grossly normal, normal pharynx, no angioedema, normal voice Neck: full range of motion, supple/symm/no masses Respiratory: chest non-tender, lungs clear, normal breath sounds, speaking full sentences, other - midsternal reproducible chest wall pain Cardiovascular #1: regular rate, rhythm, no edema Cardiovascular #2: 2+ carotid (R), 2+ carotid (L), 2+ radial (R), 2+ radial (L) , 2+ dorsalis pedis (R), 2+ dorsalis pedis (L) Gastrointestinal: normal bowel sounds, non tender, soft, non-distended, no guarding, no rebound Rectal: deferred Genitourinary: normal inspection, no CVA tenderness Musculoskeletal: back normal, normal range of motion, gait/station normal, non- tender Neurologic: alert, motor strength/tone normal, oriented x3, sensory intact, responsive, speech normal Psychiatric: judgement/insight normal, memory normal, mood/affect normal, no suicidal/homicidal ideation Reflexes: 3+ bicep (R), 3+ bicep (L), 3+ tricep (R), 3+ tricep (L), 3+ knee (R) , 3+ knee (L) Skin: no rash Lymphatic: no adenopathy Medical Decision Making Diagnostic Impression: Primary Impression: Chest pain Qualified Codes: R07.9 - Chest pain, unspecified ER Course Hospital Course 50-year-old male presents ED complaining of reproducible chest wall pain Differential diagnoses include: Rib fracture, CA/unstable angina, contusion, muscle strain Clinical course Patient placed on stretcher. After initial history and physical I ordered labs , EKG, chest x-ray. labs reviewed- all electrolytes normal, troponins negative, no leukocytosis, hemoglobin/hematocrit stable EKG - NSR, no acute ischemic changes interpreted by me Chest x-ray-no cardiomegaly, no rib fracture, no pneumothorax, no acute process clinical findings consistent with muscle strain/costochondritis. Reassurance given. Patient given Toradol for pain. I reviewed EMR; patient has been here sent multiple times for similar type of chest pain. Safe for discharge for close outpatient follow-up. States he has a PMD I. I feel this is a highly complex case requiring extensive working including EKG/Rhythm strip, Xray/CT/US, Blood/urine lab work, repeat exams while in ED, and administration of strong opiates/narcotics for pain control, admission to hospital or close patient follow up. Diagnosis - chest pain Stable and discharged to home with prescription for Tylenol. Instructed to followup with PMD. Return to ED if symptoms recur or worsen Labs Test 02/18/20 23:25 White Blood Count 8.9 K/UL (4.8-10.8) Red Blood Count 5.65 M/UL (4.70-6.10) Hemoglobin 16.1 G/DL (14.2-18.0) Hematocrit 48.6 % (42.0-52.0) Mean Corpuscular Volume 86 FL (80-99) Mean Corpuscular Hemoglobin 28.5 PG (27.0-31.0) Mean Corpuscular Hemoglobin Concent 33.1 G/DL (32.0-36.0) Red Cell Distribution Width 12.7 % (11.6-14.8) Platelet Count 222 K/UL (150-450) Mean Platelet Volume 8.0 FL (6.5-10.1) Neutrophils (%) (Auto) 67.4 % (45.0-75.0) Lymphocytes (%) (Auto) 20.0 % (20.0-45.0) Monocytes (%) (Auto) 8.0 % (1.0-10.0) Eosinophils (%) (Auto) 3.2 % (0.0-3.0) Basophils (%) (Auto) 1.4 % (0.0-2.0) Sodium Level 132 MMOL/L (136-145) Potassium Level 2.9 MMOL/L (3.5-5.1) Chloride Level 102 MMOL/L (98-107) Carbon Dioxide Level 26 MMOL/L (21-32) Anion Gap 5 mmol/L (5-15) Blood Urea Nitrogen 12 mg/dL (7-18) Creatinine 0.8 MG/DL (0.55-1.30) Estimat Glomerular Filtration Rate > 60 mL/min (>60) Glucose Level 118 MG/DL (74-106) Calcium Level 9.2 MG/DL (8.5-10.1) Total Bilirubin 0.4 MG/DL (0.2-1.0) Aspartate Amino Transf (AST/SGOT) 25 U/L (15-37) Alanine Aminotransferase (ALT/SGPT) 59 U/L (12-78) Alkaline Phosphatase 94 U/L (46-116) Troponin I 0.000 ng/mL (0.000-0.056) Pro-B-Type Natriuretic Peptide 46 pg/mL (0-125) Total Protein 7.8 G/DL (6.4-8.2) Albumin 4.3 G/DL (3.4-5.0) Globulin 3.5 g/dL Albumin/Globulin Ratio 1.2 (1.0-2.7) EKG Diagnostic Results Rate: normal Rhythm: NSR ST Segments: no acute changes ASA given to the pt in ED: No Rhythm Strip Diag. Results EP Interpretation: yes Rhythm: NSR, no PVC's, no ectopy Chest X-Ray Diagnostic Results Chest X-Ray Diagnostic Results : Chest X-Ray Ordered: Yes # of Views/Limited/Complete: 1 View Indication: Chest Pain EP Interpretation: Yes Interpretation: no consolidation, no effusion, no pneumothorax, no acute cardiopulmonary disease Impression: No acute disease Electronically Signed by: Electronically signed by Sander Henson MD Last Vital Signs Date Time Temp Pulse Resp B/P (MAP) Pulse Ox O2 Delivery O2 Flow Rate FiO2 02/18/20 23:34 80 18 Room Air 02/18/20 23:34 98.2 144/95 98 Status: improved Disposition: HOME, SELF-CARE Condition: Stable Scripts Acetaminophen* (TYLENOL EXTRA STRENGTH*) 500 Mg Tablet 500 MG ORAL Q8H PRN for Prn Headache/Temp > 101, #30 TAB 0 Refills Prov: Sander Henson MD 02/19/20 Referrals: NOT CHOSEN IPA/,REFERRING (PCP) Sander Henson MD Feb 18, 2020 23:42
[2020-02-18] MEDS ORDERED: Ketorolac 30mg Inj IV ONE (23:45)
[2020-02-18 23:47] LABS: BASOPHILS % (AUTO) 1.4 % (0.0-2.0); EOSINOPHILS % (AUTO) 3.2 % (0.0-3.0); HEMATOCRIT 48.6 % (42.0-52.0); HEMOGLOBIN 16.1 G/DL (14.2-18.0); MEAN CORPUSCULAR VOLUME 86 FL (80-99); NEUTROPHILS % (AUTO) 67.4 % (45.0-75.0); PLATELET COUNT 222 K/UL (150-450); RED BLOOD COUNT 5.65 M/UL (4.70-6.10); RED CELL DISTRIBUTION WIDTH 12.7 % (11.6-14.8); WHITE BLOOD COUNT 8.9 K/UL (4.8-10.8)
[2020-02-19 00:08] LABS: ALANINE AMINOTRANSFERASE 59 U/L (12-78); ALBUMIN 4.3 G/DL (3.4-5.0); ALBUMIN/GLOBULIN RATIO 1.2 (1.0-2.7); ALKALINE PHOSPHATASE 94 U/L (46-116); ANION GAP 5 mmol/L (5-15); ASPARTATE AMINO TRANSFERASE 25 U/L (15-37); BILIRUBIN,TOTAL 0.4 MG/DL (0.2-1.0); BLOOD UREA NITROGEN 12 mg/dL (7-18); CALCIUM 9.2 MG/DL (8.5-10.1); CARBON DIOXIDE 26 MMOL/L (21-32); CHLORIDE 102 MMOL/L (98-107); CREATININE 0.8 MG/DL (0.55-1.30); POTASSIUM 2.9 MMOL/L (3.5-5.1); SODIUM 132 MMOL/L (136-145)
[2020-02-19] MEDS ORDERED: TYLENOL EXTRA500 MG ORAL (00:39)
[2020-02-19 01:10] VITALS: BP 136/85
--- NOTE | 2020-02-19 09:19 | Diagnostic Imaging Report ---
Indication: Chest pain for one day Technique: One view of the chest Comparison: 09/08/2017 Findings: There is some scarring at the left lung base again demonstrated. The lungs and pleural spaces are otherwise clear. The heart size is normal. Impression: No acute process
== END 2020-02-19 01:10 | disposition home or self-care (01) ==
LOC: EMR 23:22
DX: R07.9 Chest pain, unspecified (principal); R06.02 Shortness of breath; I10 Essential (primary) hypertension; K21.9 Gastro-esophageal reflux disease without esophagitis; Z79.82 Long term (current) use of aspirin
CPT/HCPCS: 36415; 71045; 80053; 83880; 84484; 85025; 93005; 96374; 99284; J1885; J8499

== ENCOUNTER 2020-08-22 16:48 | Emergency (ER) | payer OTHER ==
[~2020-08-22] VITALS: Ht 165.1 cm; Wt 95.3 kg
[~2020-08-22 16:48] MED LIST changes: +OMEPRAZOLE40 M1 ORAL; +TYLENOL EXTRA500 MG ORAL
[2020-08-22 16:59] VITALS: BP 141/87
--- NOTE | 2020-08-22 17:09 | NUR ---
ED Nurse Note: Patient from home and walked in due to right sided abd pain with nausea started this morning. Denies reports of vomiting or diarrhea. No recent drug qand alcohol cosumption per pt. AAO x4, ambulatory with non labored breathing.
[2020-08-22] MEDS ORDERED: Omnipaque-300 100ml vial INJ PRN (17:15)
--- NOTE | 2020-08-22 17:26 | NUR ---
ED Nurse Note: Collected blood and urine then sent.
[2020-08-22 17:34] LABS: BASOPHILS % (AUTO) 1.3 % (0.0-2.0); EOSINOPHILS % (AUTO) 6.1 % (0.0-3.0); HEMOGLOBIN 17.3 G/DL (14.2-18.0); LYMPHOCYTES % (AUTO) 17.4 % (20.0-45.0); MEAN CORPUSCULAR VOLUME 87 FL (80-99); MONOCYTES % (AUTO) 7.8 % (1.0-10.0); NEUTROPHILS % (AUTO) 67.4 % (45.0-75.0); PLATELET COUNT 213 K/UL (150-450); RED BLOOD COUNT 5.85 M/UL (4.70-6.10); RED CELL DISTRIBUTION WIDTH 12.3 % (11.6-14.8); WHITE BLOOD COUNT 8.8 K/UL (4.8-10.8)
[2020-08-22 17:36] LABS: APPEARANCE,URINE CLEAR; BILIRUBIN, URINE NEGATIVE (NEGATIVE); GLUCOSE, URINE (UA) NEGATIVE (NEGATIVE); KETONES,URINE NEGATIVE (NEGATIVE); LEUKOCYTE ESTERASE ,URINE 1+ (NEGATIVE); NITRITE,URINE NEGATIVE (NEGATIVE); PH,URINE 6 (4.5-8.0); PROTEIN,URINE NEGATIVE (NEGATIVE); UROBILINOGEN,URINE NORMAL MG/DL (0.0-1.0)
[2020-08-22 17:37] LABS: COLOR,URINE YELLOW
[2020-08-22 17:41] LABS: INR 0.9 (0.9-1.1)
[2020-08-22 17:48] LABS: ANION GAP 12 mmol/L (5-15); BLOOD UREA NITROGEN 16 mg/dL (7-18); CALCIUM 9.3 MG/DL (8.5-10.1); CARBON DIOXIDE 21 MMOL/L (21-32); CHLORIDE 106 MMOL/L (98-107); CREATININE 1.4 MG/DL (0.55-1.30); POTASSIUM 4.2 MMOL/L (3.5-5.1); SODIUM 139 MMOL/L (136-145)
--- NOTE | 2020-08-22 17:51 | Emergency Room Report ---
History of Present Illness General Chief Complaint: Abdominal Pain Source: Patient Present Illness HPI 50-year-old male with history of hypertension currently taking losartan and aspirin and diverticulosis as well as several months of vertigo here complaining of sudden onset of right upper and lower abdominal pain that started in her his sleep this morning. Complains of nausea however denies vomiting. Denies diarrhea constipation. Denies blood in stool. Complains of feeling feverish and chills. Denies cough and congestion, shortness of breath, headache and blurred vision. Reports that he has history of cerumen impaction in the right ear he usually gets drops to have it removed because he gets vertigo from it. He is complaining of tinnitus and vertigo at this time. Denies any fall or injury. Denies any hearing loss. Has not taken any drops today. Patient took 2 Advil's prior to coming here. Patient reports that many years ago he used to smoke tobacco however he quit. Patient is denying alcohol intake and any drug use in the past 24 to 48 hours. Denies any recent travel or exposure to someone who is covid positive. 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 Patient History Past Medical History: see triage record Past Surgical History: none Pertinent Family History: none Immunizations: UTD Reviewed Nursing Documentation: PMH: Agreed; PSxH: Agreed Nursing Documentation-PMH Past Medical History: No History, Except For Hx Cardiac Problems: No - takes aspirin GERD Hx Hypertension: Yes Review of Systems All Other Systems: negative except mentioned in HPI Physical Exam Vital Signs Date Time Temp Pulse Resp B/P (MAP) Pulse Ox O2 Delivery O2 Flow Rate FiO2 08/22/20 16:59 98.6 73 16 141/87 98 Room Air Sp02 EP Interpretation: reviewed, normal General Appearance: alert, GCS 15, non-toxic, mild distress Head: normocephalic, atraumatic Eyes: bilateral eye normal inspection, bilateral eye PERRL ENT: hearing grossly normal, normal pharynx, no angioedema, normal voice, other - No cerumen impaction noted Neck: full range of motion, supple/symm/no masses Respiratory: chest non-tender, lungs clear, normal breath sounds, speaking full sentences Cardiovascular #1: regular rate, rhythm, no murmur Cardiovascular #2: 2+ carotid (R), 2+ carotid (L), 2+ radial (R), 2+ radial (L), 2+ dorsalis pedis (R), 2+ dorsalis pedis (L) Gastrointestinal: no mass, no organomegaly, no peritonitis, no bruit, non- distended, no pulsatile mass, no rebound, guarding - Right mid to lower quadrant, other - Fountain's negative, McBurney's and Rovsing's negative Rectal: deferred Genitourinary: no CVA tenderness Musculoskeletal: back normal Neurologic: alert, motor strength/tone normal, oriented x3, sensory intact, responsive, speech normal Psychiatric: judgement/insight normal, memory normal, mood/affect normal, no suicidal/homicidal ideation Skin: no rash Lymphatic: no adenopathy Medical Decision Making PA Attestation All my diagnosis and treatment plans were reviewed ad discussed with my supervising physician Dr. Min Diagnostic Impression: Primary Impression: Diverticulosis Additional Impression: Vertigo ER Course 50-year-old male with history of hypertension currently taking losartan and aspirin and diverticulosis as well as several months of vertigo here complaining of sudden onset of right upper and lower abdominal pain that started in her his sleep this morning. Complains of nausea however denies vomiting. Denies diarrhea constipation. Denies blood in stool. Complains of feeling feverish and chills. Denies cough and congestion, shortness of breath, headache and blurred vision. Reports that he has history of cerumen impaction in the right ear he usually gets drops to have it removed because he gets vertigo from it. He is complaining of tinnitus and vertigo at this time. Denies any fall or injury. Denies any hearing loss. Has not taken any drops today. Patient took 2 Advil's prior to coming here. Patient reports that many years ago he used to smoke tobacco however he quit. Patient is denying alcohol intake and any drug use in the past 24 to 48 hours. Denies any recent travel or exposure to someone who is covid positive. Denies urinary symptoms Ddx considered but are not limited to: appendicitis, cholecystis, gastritis, gastroenteritis, UTI, pyelonephritis, SBO, diverticulitis, influenza with GI manifestation, AL, pancreatitis Vital signs: are WNL, pt. is afebrile H&PE are most consistent with: diverticulosis, vertigo ORDERS: abdominal CT, abdominal pain set, EKG, zofran, dicyclomin, colace, pepcid ED INTERVENTIONS: NS bolus, Zofran, Toradol, Pepcid When I explained the patient that patient has diverticulosis and there is no changes compared to the last CT scan that he had here he had no recollection that he had a CT scan that he did not know that he has diverticulosis. Advised patient that needs to increase fiber intake, take medication as directed, follow-up with primary care provider, also gave asking for something for pain I told him that he can take Tylenol. DISCHARGE: At this time pt. is stable for d/c to home. Will provide printed patient care instructions, and any necessary prescriptions. Care plan and follow up instructions have been discussed with the patient prior to discharge. Take medication as directed, follow primary care provider referral to candy roller may be needed, if worsening symptoms return to the emergency room also have primary doctor sent you to ENT for further evaluation regarding your vertigo. I also advised the patient get MRI of brain done as there could be central causes of vertigo as it has becoming chronic Patient understands what diverticulosis is after explaining to him and understands he needs to increase oral hydration as well as fiber intake and return to the emergency room with any blood in stool any worsening symptoms. Also patient understand the need to follow primary doctor in this regard and take Tylenol for pain as needed. Also advised to take the medication for constipation as he later tells me that though he reported that he is not constipated he has been having a hard time making bowel movements for quite some times with last bowel movement being yesterday with small amount without any blood in it. EKG Diagnostic Results Rate: normal Rhythm: NSR ST Segments: no acute changes Other Impression No acute ST changes ASA given to the pt in ED: No CT/MRI/US Diagnostic Results CT/MRI/US Diagnostic Results : Imaging Test Ordered: CT abdomen pelvis with contrast Impression COMPARISON: CT abdomen and pelvis dated 10/31/2018. FINDINGS: Lung bases: Unremarkable. No mass. No consolidation. ABDOMEN: Liver: Unremarkable. Gallbladder and bile ducts: Unremarkable. No calcified stones. No ductal dilation. Pancreas: Unremarkable. No ductal dilation. Spleen: Unremarkable. No splenomegaly. Adrenals: Unremarkable. No mass. Kidneys and ureters: Unremarkable. No obstructing stones. No hydronephrosis. Stomach and bowel: Mild colonic diverticulosis. No evidence of diverticulitis. No obstruction. PELVIS: Appendix: Normal appendix. Bladder: Unremarkable. No stones. Reproductive: Unremarkable as visualized. ABDOMEN and PELVIS: Intraperitoneal space: Unremarkable. No free air. No significant fluid collection. Bones/joints: No acute fracture. No dislocation. Soft tissues: Left fat-containing inguinal hernia. Vasculature: Unremarkable. No abdominal aortic aneurysm. Lymph nodes: Unremarkable. No enlarged lymph nodes. IMPRESSION: 1. No acute abnormality of the abdomen and pelvis. 2. Chronic findings as above. Last Vital Signs Date Time Temp Pulse Resp B/P (MAP) Pulse Ox O2 Delivery O2 Flow Rate FiO2 08/22/20 17:09 73 16 Room Air 08/22/20 16:59 98.6 141/87 (105) 98 Disposition: HOME, SELF-CARE Condition: Stable Scripts Meclizine Hcl* (MECLIZINE*) 25 Mg Tablet 25 MG ORAL THREE TIMES A DAY for 3 Days, #10 TAB Prov: SantinomogRand aguayo PA 08/22/20 Dicyclomine Hcl* (DICYCLOMINE HCL*) 10 Mg Capsule 10 MG ORAL QID, #20 CAP Prov: SantinomogRand aguayo PA 08/22/20 Famotidine* (Pepcid 20mg tablet*) 20 Mg Tablet 20 MG ORAL DAILY for Gerd, #30 TAB 0 Refills Prov: Rand Erazo PA 08/22/20 Docusate Sodium* (COLACE*) 100 Mg Capsule 100 MG ORAL THREE TIMES A DAY, #20 CAP Prov: SantinomogRand aguayo PA 08/22/20 Ondansetron (Zofran) 4 Mg Tablet 4 MG ORAL Q6H PRN for Nausea & Vomiting, #14 TAB Prov: Radn Erazo PA 08/22/20 Patient Instructions: Abdominal Pain, Adult, Diverticulosis, Vertigo, Clhb-[id number] Additional Instructions: Take medication as directed, follow primary care provider referral to candy roller may be needed, if worsening symptoms return to the emergency room also have primary doctor sent you to ENT for further evaluation regarding your vertigo. Rand Erazo Aug 22, 2020 17:51
[2020-08-22 17:52] LABS: ALANINE AMINOTRANSFERASE 109 U/L (12-78); ALBUMIN 4.3 G/DL (3.4-5.0); ALBUMIN/GLOBULIN RATIO 1.3 (1.0-2.7); ALKALINE PHOSPHATASE 93 U/L (46-116); ASPARTATE AMINO TRANSFERASE 43 U/L (15-37); BILIRUBIN,TOTAL 0.5 MG/DL (0.2-1.0)
[2020-08-22] MEDS ORDERED: Ketorolac 30mg Inj IV ONE (18:00)
--- NOTE | 2020-08-22 18:16 | NUR ---
ED Nurse Note: Patient taken to CT in stable condition.
[2020-08-22 18:56] VITALS: BP 139/75
--- NOTE | 2020-08-22 19:05 | Diagnostic Imaging Report ---
EXAM: CT Head Without Intravenous Contrast CLINICAL HISTORY: DIZZY TECHNIQUE: Axial computed tomography images of the head/brain without intravenous contrast. CTDI is 53.4 mGy and DLP is 1152.4 mGy-cm. One or more of the following dose reduction techniques were used: automated exposure control, adjustment of the mA and/or kV according to patient size, use of iterative reconstruction technique. COMPARISON: CT head dated 06/29/2017 FINDINGS: Brain: Unremarkable. No hemorrhage. No significant white matter disease. No edema. Ventricles: Unremarkable. No ventriculomegaly. Bones/joints: Unremarkable. No acute fracture. Soft tissues: Unremarkable. Sinuses: Unremarkable as visualized. No acute sinusitis. Mastoid air cells: Unremarkable as visualized. No mastoid effusion. IMPRESSION: No acute intracranial abnormality.
--- NOTE | 2020-08-22 19:12 | NUR ---
HAND-OFF: Report given to Marycruz GARCIA.
--- NOTE | 2020-08-22 19:17 | Diagnostic Imaging Report ---
EXAM: CT Abdomen and Pelvis Without Intravenous Contrast CLINICAL HISTORY: PAIN TECHNIQUE: Axial computed tomography images of the abdomen and pelvis without intravenous contrast. CTDI is 11.30 mGy and DLP is 735.10 mGy-cm. One or more of the following dose reduction techniques were used: automated exposure control, adjustment of the mA and/or kV according to patient size, use of iterative reconstruction technique. COMPARISON: CT abdomen and pelvis dated 10/31/2018. FINDINGS: Lung bases: Unremarkable. No mass. No consolidation. ABDOMEN: Liver: Unremarkable. Gallbladder and bile ducts: Unremarkable. No calcified stones. No ductal dilation. Pancreas: Unremarkable. No ductal dilation. Spleen: Unremarkable. No splenomegaly. Adrenals: Unremarkable. No mass. Kidneys and ureters: Unremarkable. No obstructing stones. No hydronephrosis. Stomach and bowel: Mild colonic diverticulosis. No evidence of diverticulitis. No obstruction. PELVIS: Appendix: Normal appendix. Bladder: Unremarkable. No stones. Reproductive: Unremarkable as visualized. ABDOMEN and PELVIS: Intraperitoneal space: Unremarkable. No free air. No significant fluid collection. Bones/joints: No acute fracture. No dislocation. Soft tissues: Left fat-containing inguinal hernia. Vasculature: Unremarkable. No abdominal aortic aneurysm. Lymph nodes: Unremarkable. No enlarged lymph nodes. IMPRESSION: 1. No acute abnormality of the abdomen and pelvis. 2. Chronic findings as above.
[2020-08-22] MEDS ORDERED: FAMOTIDINE20 MG ORAL (19:32)
[2020-08-22] MEDS ORDERED: ZOFRAN4 M1 ORAL (19:32)
[2020-08-22] MEDS ORDERED: COLACE100 MG ORAL (19:32)
[2020-08-22] MEDS ORDERED: MECLIZINE HCL25 MG ORAL (19:36)
[2020-08-22] MEDS ORDERED: DICYCLOMINE HCL10 MG ORAL (19:36)
[2020-08-22 19:50] VITALS: BP 132/78
--- NOTE | 2020-08-22 19:50 | NUR ---
ER DISCHARGE NOTE: Patient is cleared to be discharged per ERMD. Patient verbalized understanding of discharge instructions. ID band removed, IV removed without complication. Patient rendered PO pain medication prior to departure. Patient is A&Ox4, ambulatory with steady gait. Patient departed with all belongings.
--- NOTE | 2020-08-25 17:08 | Cardiology Report ---
APPROVED REPORT EKG Measurement Heart [id number] <Conclusion> Normal sinus rhythm with sinus arrhythmia Normal ECG
== END 2020-08-22 19:50 | disposition home or self-care (01) ==
LOC: EMR 17:35
DX: K57.90 Diverticulosis of intestine, part unspecified, without perforation or abscess without bleeding (principal); R42 Dizziness and giddiness; I10 Essential (primary) hypertension; Z79.82 Long term (current) use of aspirin; K21.9 Gastro-esophageal reflux disease without esophagitis; K40.90 Unilateral inguinal hernia, without obstruction or gangrene, not specified as recurrent
CPT/HCPCS: 36415; 70450; 74176; 80053; 80307; 81003; 83690; 84484; 85025; 85610; 85730; 86850; 86900; 86901; 93005; 96361; 96374; 96375; G0480; J1885; J2405; J7030; S0028; Z7502; 99284

== ENCOUNTER 2020-09-11 10:02 | Emergency (ER) | payer OTHER ==
[~2020-09-11] VITALS: Ht 172.7 cm; Wt 95.3 kg
[~2020-09-11 10:02] MED LIST changes: +COLACE100 MG ORAL; +DICYCLOMINE HCL10 MG ORAL; +FAMOTIDINE20 MG ORAL; +ZOFRAN4 M1 ORAL
[2020-09-11 10:05] VITALS: BP 129/83
--- NOTE | 2020-09-11 10:19 | NUR ---
ED Nurse Note: PT. AAOX4. AMBULATORY. PT. WALKED IN TO ER WITH LIMPING NOTED ON THE L ANKLE. PER PT. HE WOKE UP 0500 TODAY AND STARTED HAVING L-ANKLE PAIN. DENIES RECENT INJURY. NO S/S OF ACUTE DISTRESS NOTED AT THIS TIME. ASSISTED PT. GOING TO HIS ROOM
[2020-09-11] MEDS ORDERED: IBUPROFEN600 M1 ORAL (11:15)
[2020-09-11 11:21] VITALS: BP 129/83
--- NOTE | 2020-09-11 11:21 | NUR ---
ED Nurse Note: Pt cleared by ERMD for discharge. DC instructions was given and explained to pt and verbalized understanding of teachings. prescription sent electronically to the pharmacy of choice. All medical deviecs such as ID band removed. Pt is AAO x4, ambulatory and left with all personal belongings.
--- NOTE | 2020-09-11 11:53 | Diagnostic Imaging Report ---
EXAM: X-RAY XRAY Ankle Compl Min 3v L CLINICAL HISTORY: Ankle pain. COMPARISON: None FINDINGS: Total of 3 views of the left ankle were obtained. Alignment is anatomic. There is no fracture, bony lesions or erosions. Joint spaces are unremarkable. Surrounding soft tissue is normal. IMPRESSION: NO ACUTE BONY ABNORMALITY.
--- NOTE | 2020-09-11 11:53 | Diagnostic Imaging Report ---
EXAM: X-RAY XRAY Foot Complete L CLINICAL HISTORY: Foot pain. COMPARISON: None FINDINGS: Total of 3 views of the left foot were obtained. Alignment is anatomic. There is no fracture, bony lesions or erosions. Joint spaces are unremarkable. Surrounding soft tissue is normal. IMPRESSION: NO ACUTE BONY ABNORMALITY.
--- NOTE | 2020-09-11 17:11 | Emergency Room Report ---
History of Present Illness General Chief Complaint: Pain Source: Patient Present Illness HPI 50-year-old male presents with left ankle pain. States he woke up with the pain today. Dull, 10 out of 10, nonradiating. Points to the back of the ankle. States it is difficult to bear weight. Denies any fall or injury. No other aggravating relieving factors. 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 Patient History Past Medical History: HTN Past Surgical History: none Pertinent Family History: none Social History: Denies: smoking, alcohol use, drug use Immunizations: UTD Reviewed Nursing Documentation: PMH: Agreed; PSxH: Agreed Nursing Documentation-PMH Hx Cardiac Problems: No Hx Hypertension: Yes Review of Systems All Other Systems: negative except mentioned in HPI Physical Exam Vital Signs Date Time Temp Pulse Resp B/P (MAP) Pulse Ox O2 Delivery O2 Flow Rate FiO2 09/11/20 10:05 98.1 75 19 129/83 (98) 95 Room Air Sp02 EP Interpretation: reviewed, normal General Appearance: no apparent distress, alert, GCS 15, non-toxic Head: normocephalic, atraumatic Eyes: bilateral eye normal inspection, bilateral eye PERRL ENT: hearing grossly normal, normal pharynx, no angioedema, normal voice Neck: full range of motion, supple/symm/no masses Respiratory: chest non-tender, lungs clear, normal breath sounds, speaking full sentences Cardiovascular #1: regular rate, rhythm, no edema Cardiovascular #2: 2+ carotid (R), 2+ carotid (L), 2+ radial (R), 2+ radial (L), 2+ dorsalis pedis (R), 2+ dorsalis pedis (L) Gastrointestinal: normal bowel sounds, non tender, soft, non-distended, no guarding, no rebound Rectal: deferred Genitourinary: normal inspection, no CVA tenderness Musculoskeletal: back normal, normal range of motion, gait/station normal, tender - Posterior ankle Neurologic: alert, motor strength/tone normal, oriented x3, sensory intact, responsive, speech normal Psychiatric: judgement/insight normal, memory normal, mood/affect normal, no suicidal/homicidal ideation Reflexes: 3+ bicep (R), 3+ bicep (L), 3+ tricep (R), 3+ tricep (L), 3+ knee (R), 3+ knee (L) Lymphatic: no adenopathy Procedures Splinting Splinting : Consent: Verbal Pre-Made Type: NANCY wrap Pre-Proc Neuro Vasc Exam: normal Post-Proc Neuro Vasc Exam: normal Patient Tolerated: Well Complications: None Medical Decision Making Diagnostic Impression: Primary Impression: Ankle pain Qualified Codes: M25.572 - Pain in left ankle and joints of left foot ER Course Hospital Course 50-year-old male presents with left ankle pain Differential diagnoses include: Fracture, dislocation, sprain, contusion Clinical course Patient placed on stretcher. After initial history and physical, I ordered pain medications and Xrays of L foot/ankle Xrays prelim read shows no acute fracture/dislocation. placed in nancy wrap, given crutches. Safe for discharge and close outpatient follow-up. I will provide referrals Diagnosis - ankle pain Stable and discharged to home with prescription for Motrin. apply ice, keep elevated. weight bear as tolerated. Followup with PMD/Ortho. Return to ED if symptoms recur or worsen Other X-Ray Diagnostic Results Other X-Ray Diagnostic Results #1: X-Ray ordered: Left ankle # of Views/Limited Vs Complete: 3 View Indication: Pain EP Interpretation: Yes Interpretation: no dislocation, no soft tissue swelling, no fractures Impression: No acute disease Electronically Signed by: Electronically signed by Sander Henson MD Other X-Ray Diagnostic Results #2: X-Ray ordered: Left foot # of Views/Limited Vs Complete: 3 View Indication: Pain EP Interpretation: Yes Interpretation: no dislocation, no soft tissue swelling, no fractures Impression: No acute disease Electronically Signed by: Electronically signed by Sander Henson MD Last Vital Signs Date Time Temp Pulse Resp B/P (MAP) Pulse Ox O2 Delivery O2 Flow Rate FiO2 09/11/20 11:21 98.1 75 19 129/83 95 Room Air Status: improved Disposition: HOME, SELF-CARE Condition: Stable Scripts Ibuprofen* (MOTRIN*) 600 Mg Tablet 600 MG ORAL Q8H PRN for FOR PAIN, #30 TAB 0 Refills Prov: Sander Henson MD 09/11/20 [facility] Open 24 hour /7 days a week by Appointment Only [address] [facility] [id number] Departure Forms: Return to Work Return to Work Date: Sep 14, 2020 Work Restrictions: No Prolonged Standing Patient Instructions: Ankle Sprain, [id number] Sander Henson MD Sep 11, 2020 17:11
== END 2020-09-11 11:21 | disposition home or self-care (01) ==
LOC: EMR 10:40
DX: M25.572 Pain in left ankle and joints of left foot (principal); I10 Essential (primary) hypertension
CPT/HCPCS: 73610; 73630; Z7502; 99284

== ENCOUNTER 2021-02-08 13:45 | Emergency (ER) | payer OTHER ==
[~2021-02-08] VITALS: Ht 165.1 cm; Wt 95.3 kg
[~2021-02-08 13:45] MED LIST changes: +IBUPROFEN600 M1 ORAL
[2021-02-08 13:52] VITALS: BP 133/82
--- NOTE | 2021-02-08 14:14 | Emergency Room Report ---
History of Present Illness General Chief Complaint: Headache Source: Patient Present Illness HPI Patient is a 51 yo male, past medical history of hypertension who presents to the ER complaining of headache. Patient states that he had a right mastoid surgery recently. He states that he followed up with his doctor last week and everything seemed fine. He was advised not to use any eardrops. Patient states that yesterday he started having bilateral temporal tenderness. He denies any fever or chills. He denies any dizziness. He denies any blurry vision. He denies any focal weakness. He denies any head trauma. He denies any chest pain or shortness of breath. He states that he took some Tylenol and Advil with moderate relief. 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 COVID-19 Screening: Negative COVID-19 COVID-19 Testing Source: 3 weeks ago Patient History Reviewed Nursing Documentation: PMH: Agreed; PSxH: Agreed Nursing Documentation-PMH Hx Cardiac Problems: No Hx Hypertension: Yes Review of Systems All Other Systems: negative except mentioned in HPI Physical Exam Vital Signs Date Time Temp Pulse Resp B/P (MAP) Pulse Ox O2 Delivery O2 Flow Rate FiO2 02/08/21 13:52 98.1 69 15 133/82 (99) 96 Room Air Sp02 EP Interpretation: reviewed, normal General Appearance: no apparent distress, alert, GCS 15, non-toxic Head: normocephalic, atraumatic Eyes: bilateral eye normal inspection, bilateral eye PERRL ENT: normal pharynx, other - R periauricular healed surgical incision site, R partially ruputured TM less than 50% Neck: full range of motion, supple, no meningismus Respiratory: normal breath sounds, no respiratory distress, no accessory muscle use Cardiovascular #1: regular rate, rhythm Gastrointestinal: normal bowel sounds, non tender, non-distended, no guarding Rectal: deferred Genitourinary: no CVA tenderness Musculoskeletal: normal range of motion 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 Meningitis and encephalitis were considered unlikely given patient has no significant fever, focal neurological deficits, petechiae, seizure like symptoms, nuchal rigidity, kernig sign, or brudzinski sign. Ischemic and hemorrhagic CVA also considered unlikely given no new focal neurological deficits, amnesia, slurred speech, or aphasia. In addition, patient reports gradual onset of BLACK and not a sudden onset/severe BLACK so I highly doubt SAH. Head CT was negative for any acute abnormal findings except for small foci of gas noted adjacent to the defect in the right mastoids which is noted to be possibly postoperative patient did recently have surgery and there was no evidence for abscess. And laboratory findings reviewed and showed no acute abnormalities suggestive of infection. The patient was counseled that, though unlikely, the possibility of an emergent cause of headache may still be present and that the patient should return immediately if symptoms persists or worsen. I believe the patient is stable for discharge to follow-up with their PMD. Laboratory Tests Test 02/08/21 14:00 White Blood Count 6.1 K/UL (4.8-10.8) Red Blood Count 6.11 M/UL (4.70-6.10) H Hemoglobin 17.1 G/DL (14.2-18.0) Hematocrit 52.2 % (42.0-52.0) H Mean Corpuscular Volume 86 FL (80-99) Mean Corpuscular Hemoglobin 28.0 PG (27.0-31.0) Mean Corpuscular Hemoglobin Concent 32.8 G/DL (32.0-36.0) Red Cell Distribution Width 12.0 % (11.6-14.8) Platelet Count 259 K/UL (150-450) Mean Platelet Volume 8.8 FL (6.5-10.1) Neutrophils (%) (Auto) 57.1 % (45.0-75.0) Lymphocytes (%) (Auto) 26.7 % (20.0-45.0) Monocytes (%) (Auto) 8.9 % (1.0-10.0) Eosinophils (%) (Auto) 6.1 % (0.0-3.0) H Basophils (%) (Auto) 1.2 % (0.0-2.0) Erythrocyte Sedimentation Rate 5 MM/HR (0-15) Urine Color Pale yellow Urine Appearance Clear Urine pH 6 (4.5-8.0) Urine Specific [place] 1.010 (1.005-1.035) Urine Protein Negative (NEGATIVE) Urine Glucose (UA) Negative (NEGATIVE) Urine Ketones Negative (NEGATIVE) Urine Blood Negative (NEGATIVE) Urine Nitrite Negative (NEGATIVE) Urine Bilirubin Negative (NEGATIVE) Urine Urobilinogen Normal MG/DL (0.0-1.0) Urine Leukocyte Esterase Negative (NEGATIVE) Sodium Level 141 MMOL/L (136-145) Potassium Level 4.5 MMOL/L (3.5-5.1) Chloride Level 105 MMOL/L (98-107) Carbon Dioxide Level 26 MMOL/L (21-32) Anion Gap 10 mmol/L (5-15) Blood Urea Nitrogen 12 mg/dL (7-18) Creatinine 0.9 MG/DL (0.55-1.30) Estimated Glomerular Filtration Rate > 60 mL/min (>60) Glucose Level 101 MG/DL (74-106) Calcium Level 9.8 MG/DL (8.5-10.1) Magnesium Level 2.2 MG/DL (1.8-2.4) Total Bilirubin 0.7 MG/DL (0.2-1.0) Aspartate Amino Transferase (AST) 28 U/L (15-37) Alanine Aminotransferase (ALT) 68 U/L (12-78) Alkaline Phosphatase 96 U/L (46-116) Total Protein 7.9 G/DL (6.4-8.2) Albumin 4.6 G/DL (3.4-5.0) Globulin 3.3 g/dL Albumin/Globulin Ratio 1.4 (1.0-2.7) Urine Opiates Screen Negative (NEGATIVE) Urine Barbiturates Screen Negative (NEGATIVE) Phencyclidine (PCP) Screen Negative (NEGATIVE) Urine Amphetamines Screen Negative (NEGATIVE) Urine Benzodiazepines Screen Negative (NEGATIVE) Urine Cocaine Screen Negative (NEGATIVE) Urine Marijuana (THC) Screen Negative (NEGATIVE) Rhythm Strip Diag. Results Rhythm Strip Time: 15:44 EP Interpretation: yes - Albertina Vasquez MD Rate: 61 bpm Rhythm: NSR, no PVC's, no ectopy Last Vital Signs Date Time Temp Pulse Resp B/P (MAP) Pulse Ox O2 Delivery O2 Flow Rate FiO2 02/08/21 13:52 98.1 69 15 133/82 (99) 96 Room Air Disposition: HOME, SELF-CARE Condition: Stable Scripts Ibuprofen* (MOTRIN*) 600 Mg Tablet 600 MG ORAL FOUR TIMES A DAY, #30 TAB 0 Refills Prov: Albertina Vasquez M.D. 02/08/21 Additional Instructions: The patient was provided with discharge instructions, notified to follow-up with a primary care doctor and or specialist in the next 24-48 hours, and to return to the ED if they have worsening of their symptoms. Please note that this report is being documented using [employer] technology. This can lead to erroneous entry secondary to incorrect interpretation by the dictating instrument. Albertina Vasquez M.D. Feb 08, 2021 14:14
[2021-02-08] MEDS ORDERED: Ketorolac 30mg Inj IV ONE (14:15)
[2021-02-08] MEDS ORDERED: Metoclopramide 10mg/2ml Inj IVP ONE (14:15)
[2021-02-08] MEDS ORDERED: DiphenhydrAMINE 50mg/ml Inj IVP ONE (14:15)
[2021-02-08 14:21] LABS: BASOPHILS % (AUTO) 1.2 % (0.0-2.0); EOSINOPHILS % (AUTO) 6.1 % (0.0-3.0); HEMATOCRIT 52.2 % (42.0-52.0); HEMOGLOBIN 17.1 G/DL (14.2-18.0); LYMPHOCYTES % (AUTO) 26.7 % (20.0-45.0); MEAN CORPUSCULAR VOLUME 86 FL (80-99); MONOCYTES % (AUTO) 8.9 % (1.0-10.0); NEUTROPHILS % (AUTO) 57.1 % (45.0-75.0); PLATELET COUNT 259 K/UL (150-450); RED BLOOD COUNT 6.11 M/UL (4.70-6.10); WHITE BLOOD COUNT 6.1 K/UL (4.8-10.8)
[2021-02-08 14:22] LABS: APPEARANCE,URINE CLEAR; BILIRUBIN, URINE NEGATIVE (NEGATIVE); COLOR,URINE PALE YELLOW; GLUCOSE, URINE (UA) NEGATIVE (NEGATIVE); KETONES,URINE NEGATIVE (NEGATIVE); LEUKOCYTE ESTERASE ,URINE NEGATIVE (NEGATIVE); NITRITE,URINE NEGATIVE (NEGATIVE); PH,URINE 6 (4.5-8.0); PROTEIN,URINE NEGATIVE (NEGATIVE); UROBILINOGEN,URINE NORMAL MG/DL (0.0-1.0)
[2021-02-08 14:39] LABS: ALANINE AMINOTRANSFERASE 68 U/L (12-78); ALBUMIN 4.6 G/DL (3.4-5.0); ALBUMIN/GLOBULIN RATIO 1.4 (1.0-2.7); ALKALINE PHOSPHATASE 96 U/L (46-116); ANION GAP 10 mmol/L (5-15); ASPARTATE AMINO TRANSFERASE 28 U/L (15-37); BILIRUBIN,TOTAL 0.7 MG/DL (0.2-1.0); BLOOD UREA NITROGEN 12 mg/dL (7-18); CALCIUM 9.8 MG/DL (8.5-10.1); CARBON DIOXIDE 26 MMOL/L (21-32); CHLORIDE 105 MMOL/L (98-107); CREATININE 0.9 MG/DL (0.55-1.30); POTASSIUM 4.5 MMOL/L (3.5-5.1); SODIUM 141 MMOL/L (136-145)
--- NOTE | 2021-02-08 14:49 | Diagnostic Imaging Report ---
Indication: Headache Technique: Continuous helical CT scanning of the head was performed utilizing automated exposure control without intravenous contrast material. Axial and coronal reconstructions were obtained. Comparison: None CT dose: Total DLP 1072.2 mGycm; CTDI vol 53.4 mGy Findings: There is no acute intracranial hemorrhage, mass effect or cortical edema. The ventricles, cisterns and sulci are within normal limits for age. There is no shift to midline structures. Evidence of prior mastoidectomy on the right. There is small foci of subcutaneous gas in this region (axial image #8) and some soft tissue thickening but no appreciable fluid collection. Residual mastoid air cells on the right are opacified. Left-sided mastoid air cells are clear. Mild mucosal thickening noted in some ethmoid sinuses. No acute skull fracture. IMPRESSION: No evidence of acute intracranial hemorrhage, mass effect or cortical edema. MRI may be obtained for more sensitive evaluation as clinically indicated. Evidence of prior right-sided mastoid surgery. Some small foci of gas noted adjacent to the defect in the right mastoids potentially be postoperative in etiology, particularly if surgery was performed recently. Possibility of infection with gas-forming organism however is not excluded. Correlation with physical exam findings in timing of surgery recommended. No organized fluid collection identified. Recommend ENT evaluation/follow-up. The CT scanner at [facility] is accredited by the [employer] and the scans are performed using protocols designed to limit radiation exposure to as low as reasonably achievable to attain images of sufficient resolution adequate for diagnostic evaluation.
[2021-02-08] MEDS ORDERED: IBUPROFEN600 M1 ORAL (15:37)
--- NOTE | 2021-02-08 16:11 | NUR ---
Patient presented to the ER with c/o ear pain and headache. He reported that he has ear surgery 2 weeks ago for otitis. Visible scar noted to right ear. VSS. NKA. AAOX4. No significant medical hx. No precipitating factors for ear pain. Reported to the ER for further evaluation.
--- NOTE | 2021-02-08 16:18 | NUR ---
Patient cleared for discharge
== END 2021-02-08 15:51 | disposition home or self-care (01) ==
LOC: EMR 15:08
DX: R51.9 Headache, unspecified (principal); H72.91 Unspecified perforation of tympanic membrane, right ear; I10 Essential (primary) hypertension
CPT/HCPCS: 36415; 70450; 80053; 80307; 81003; 83735; 85025; 85651; 96361; 96374; 96375; J1200; J1885; J2765; J7030; Z7502; 99284